=== PATIENT | female | born 1980 | race Caucasian/White ===

== ENCOUNTER 2024-12-14 15:35 | Emergency (ER) | payer OTHER ==
--- OUTSIDE RECORDS SUMMARY | 2024-12-14 15:39 | XMS REPORT | Continuity of Care Document ---
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 Name Role Phone GC_GCBZW_Kadiyala_S Attending Clinician Unavaila ble GC_CCW_Nguyen_C Attending Clinician Unavailable GC_GCBZW_Kadiyala_S Admitting Clinician Unavaila ble GC_CCW_Nguyen_C Admitting Clinician Unavailable Payers Payer Name Policy Type Policy Number Effective Date Expirati on Date [place] [id number] [place] [id number] Problems Condition Name Condition Details Condition Category Status Onset Date Resolution Date Last Treatment Date Treating Clinician Comments Source Seasonal allergic rhinitis Seasonal Allergic Rhinitis Problem Active 01-15 00:00: 00 [facility] Chronic interstiti al cystitis Chronic Interstiti al Cystitis Problem Active 01-15 00:00: 00 [facility] Prediabete s Prediabete s Problem Active 01-15 00:00: 00 [facility] Acute urinary tract infection Acute Urinary Tract Infection Problem Active 12-05 00:00: 00 [facility] Genital herpes simplex Genital Herpes Simplex Problem Active 12-04 00:00: 00 [facility] Genitocrur al intertrigo Genitocrur al Intertrigo Problem Active 12-04 00:00: 00 [facility] Increased frequency of urination Increased Frequency of Urination Problem Active 12-04 00:00: 00 [facility] Hypothyroi dism Hypothyroi dism Problem Active 07-16 00:00: 00 [facility] Hyperlipid emia Hyperlipid emia Problem Active 07-16 00:00: 00 [facility] Hypertensi ve disorder Hypertensi ve Disorder Problem Active 07-16 00:00: 00 [facility] Deep pain on intercours e Deep Pain on Intercours e Problem Active 04-19 00:00: 00 [facility] Screening mammograph y Screening Mammograph y Problem Active 07-18 00:00: 00 [facility] Gynecologi kamar examinatio n abnormal Gynecologi kamar Examinatio n Abnormal Problem Active 07-18 00:00: 00 [facility] Polyp of corpus uteri Polyp of Corpus Uteri Problem Active 6 00:00: 00 [facility] Low back pain Low Back Pain Problem Active 03-29 00:00: 00 [facility] Polymenorr hea Polymenorr hea Problem Active 02-24 00:00: 00 [facility] Postcoital bleeding Postcoital Bleeding Problem Active 02-24 00:00: 00 [facility] Excessive menstruati on with irregular cycle Excessive Menstruati on with Irregular Cycle Problem Active 02-24 00:00: 00 [facility] Cervical intraepith elial neoplasia grade 2 Cervical Intraepith elial Neoplasia Grade 2 Problem Active 07-15 00:00: 00 [facility] Social History Smoking Status Start Date Stop Date Source Never Smoker [facility] Medications Ordered Medication Name Filled Medication Name Start Date Stop Date Current Medication? Ordering Clinician Indication Dosage Frequency Signature (SIG) Comments Components Source amitriptyli ne 25 mg tablet TAKE 1 TABLET BY MOUTH EVERY DAY amitriptyli ne 25 mg tablet TAKE 1 TABLET BY MOUTH EVERY DAY No amitriptyl ine 25 mg tablet TAKE 1 TABLET BY MOUTH EVERY DAY [facility] atorvastati n 10 mg tablet TAKE 1 TABLET BY MOUTH EVERY DAY FOR 30 DAYS atorvastati n 10 mg tablet TAKE 1 TABLET BY MOUTH EVERY DAY FOR 30 DAYS No atorvastat in 10 mg tablet TAKE 1 TABLET BY MOUTH EVERY DAY FOR 30 DAYS [facility] estradiol 0.01% (0.1 mg/gram) vaginal cream INSERT 0.5GRAMS DAILY FOR 2 WEEKS THEN 3 TIMES A WEEK BY VAGINAL ROUTE AT BEDTIME FOR 30 DAYS. estradiol 0.01% (0.1 mg/gram) vaginal cream INSERT 0.5GRAMS DAILY FOR 2 WEEKS THEN 3 TIMES A WEEK BY VAGINAL ROUTE AT BEDTIME FOR 30 DAYS. No estradiol 0.01% (0.1 mg/gram) vaginal cream INSERT 0.5GRAMS DAILY FOR 2 WEEKS THEN 3 TIMES A WEEK BY VAGINAL ROUTE AT BEDTIME FOR 30 DAYS. [facility] fenofibrate 160 mg tablet TAKE 1 TABLET BY MOUTH EVERY DAY fenofibrate 160 mg tablet TAKE 1 TABLET BY MOUTH EVERY DAY No fenofibrat e 160 mg tablet TAKE 1 TABLET BY MOUTH EVERY DAY [facility] lisinopril 10 mg tablet TAKE 1 TABLET BY MOUTH EVERY DAY lisinopril 10 mg tablet TAKE 1 TABLET BY MOUTH EVERY DAY No lisinopril 10 mg tablet TAKE 1 TABLET BY MOUTH EVERY DAY [facility] nystatin 100,000 unit/gram topical powder APPLY TOPICALLY TO AFFECTED AREA TWICE A DAY nystatin 100,000 unit/gram topical powder APPLY TOPICALLY TO AFFECTED AREA TWICE A DAY No nystatin 100,000 unit/gram topical powder APPLY TOPICALLY TO AFFECTED AREA TWICE A DAY [facility] pantoprazol e 40 mg tablet,[place] yed release TAKE 1 TABLET BY MOUTH TWICE A DAY pantoprazol e 40 mg tablet,law[place] yed release TAKE 1 TABLET BY MOUTH TWICE A DAY No pantoprazo le 40 mg tablet,del ayed release TAKE 1 TABLET BY MOUTH TWICE A DAY [facility] Synthroid 100 mcg tablet TAKE 1 TABLET BY MOUTH EVERY DAY BEFORE A MEAL Synthroid 100 mcg tablet TAKE 1 TABLET BY MOUTH EVERY DAY BEFORE A MEAL No Synthroid 100 mcg tablet TAKE 1 TABLET BY MOUTH EVERY DAY BEFORE A MEAL [facility] triamcinolo ne acetonide 0.05 % topical ointment APPLY A THIN LAYER TO THE AFFECTED AREA(S) BY TOPICAL ROUTE 2 TIMES PER DAY triamcinolo ne acetonide 0.05 % topical ointment APPLY A THIN LAYER TO THE AFFECTED AREA(S) BY TOPICAL ROUTE 2 TIMES PER DAY No triamcinol one acetonide 0.05 % topical ointment APPLY A THIN LAYER TO THE AFFECTED AREA(S) BY TOPICAL ROUTE 2 TIMES PER DAY [facility] triamcinolo ne acetonide 0.5 % topical ointment APPLY THIN COAT TO AFFECTED AREA TWICE A DAY triamcinolo ne acetonide 0.5 % topical ointment APPLY THIN COAT TO AFFECTED AREA TWICE A DAY No triamcinol one acetonide 0.5 % topical ointment APPLY THIN COAT TO AFFECTED AREA TWICE A DAY [facility] Vistaril 25 mg capsule 1-2 capsules daily Vistaril 25 mg capsule 1-2 capsules daily No Vistaril 25 mg capsule 1-2 capsules daily [facility] Yuvafem 10 mcg vaginal tablet INSERT 1 TABLET TWICE A WEEK BY VAGINAL ROUTE AT BEDTIME FOR 90 DAYS. Yuvafem 10 mcg vaginal tablet INSERT 1 TABLET TWICE A WEEK BY VAGINAL ROUTE AT BEDTIME FOR 90 DAYS. No Yuvafem 10 mcg vaginal tablet INSERT 1 TABLET TWICE A WEEK BY VAGINAL ROUTE AT BEDTIME FOR 90 DAYS. [facility] Vital Signs Vital Name Observation Time Observation Value Comments S ource Height 2024-01-15 00:00:00 [facility] 2024-01-01 00:00:00 68 [in_i] [facility] BMI (Body Mass Index) 2024-01-01 00:00:00 30.9 kg/m2 [facility] BP Systolic 2024-01-01 00:00:00 126 mm[Hg] [facility] Body Weight 2024-01-01 00:00:00 203 [lb_av] [facility] BP Diastolic 2024-01-01 00:00:00 84 mm[Hg] [facility] Procedures Procedure Date / Time Performed Performing Clinicia n Source Cystoscopy 2024-01-01 00:00:00 [facility] edical CT, urogram 2023-12-04 00:00:00 [facility] edical Hysteroscopy Biopsy 2021-03-31 00:00:00 P [facility] [place] Cone Biopsy of Cervix 2017-10-22 00:00:00 [facility] Encounters Start Date/Time End Date/Time Encounter Type Admission Type Attending Clinicians Care Facility Care Department Encounter ID Source 2024-01-25 00:00:00 2024-01-25 00:00:00 Outpatient GC_GCBZW_Ka gloria_Yanci [facility] [id number] [facility] 2024-01-15 00:00:00 2024-01-15 00:00:00 Yusra Sheridan MD: [address] [place] [address] S, [facility] [address], [place] [address] , Ph. TAMARA_GCBZW_Ka diyala_S Formerly [facility] - GC_GCBZW_Araceli ibanez Bandar* [id number] [facility] 2024-01-09 00:00:00 2024-01-09 00:00:00 Outpatient GC_GCBZW_Ka diyala_S PRIV PRIV [id number] [facility] 2024-01-01 00:00:00 2024-01-01 00:00:00 Yusra Sheridan MD: [address], [place] [address] [id number] , Ph. GC_GCBZW_Ka diyala_S [facility] - GC_GCBZW_Araceli ibanez Bandar* [id number] [facility] 2024-01-01 00:00:00 2024-01-01 00:00:00 Yusra Sheridan MD: [address], [address], [place] [phone] , Ph. [facility] - GC_GCBZW_Araceli ibanez Bandar* [id number] [facility] 2023-12-24 00:00:00 2023-12-24 00:00:00 Outpatient GC_GCBZW_Ka diyala_S PRIV PRIV [id number] [facility] 2023-12-14 00:00:00 2023-12-14 00:00:00 Outpatient GC_GCBZW_Ka diyala_S PRIV PRIV [id number] [facility] 2023-12-05 00:00:00 2023-12-05 00:00:00 Outpatient GC_CCW_Nguy en_C PRIV PRIV [id number] [facility] 2023-12-04 00:00:00 2023-12-04 00:00:00 Outpatient GC_GCBZW_Ka diyala_S PRIV PRIV [id number] [facility] 2023-12-04 00:00:00 2023-12-04 00:00:00 Yusra Sheridan MD: [address], [place] [address] , Ph. [facility] - GC_GCBZW_Araceli Portillo* [id number] [facility] 2023-09-07 00:00:00 2023-09-07 00:00:00 Outpatient GC_GCBZW_Ka diyala_S PRIV PRIV [id number] [facility] 2023-09-07 00:00:00 2023-09-07 00:00:00 Outpatient GC_GCBZW_Ka diyala_S PRIV PRIV [id number] [facility] 2023-08-07 00:00:00 2023-08-07 00:00:00 Outpatient GC_GCBZW_Ka diyala_S PRIV PRIV [id number] [facility] 2023-08-02 00:00:00 2023-08-02 00:00:00 Outpatient GC_GCBZW_Ka diyala_S PRIV PRIV [id number] [facility] 2023-07-24 00:00:00 2023-07-24 00:00:00 Outpatient GC_GCBZW_Ka diyala_S PRIV PRIV [id number] [facility] Results Test Description Test Time Test Comments Results Result Co mments Source [facility] macro (dipstick) panel - [id number] 14:46:28* Test Item Value Reference Range Interpretation Comme nts Leukocytes (test code = Leukocytes) 3+ Nitrite (test code = Nitrite) positive Urobilinogen (test code = Urobilinogen) Normal Protein (test code = Protein) Negative pH (test code = pH) 6.0 Blood (test code = Blood) Negative Specific [place] (test code = Specific [place]) 1.015 Ketone (test code = Ketone) Negative Bilirubin (test code = Bilirubin) Negative Glucose (test code = Glucose) Negative Appearance (test code = Appearance) Slightly Cloudy Color (test code = Color) Yellow [facility]infectious disease [id number] 02:57:00[facility]
--- NOTE | 2024-12-14 16:48 | RAD REPORT ---
EXAMINATION: Tib Fib Left CLINICAL INDICATION: Leg pain FINDINGS: No fracture seen. No bony abnormality is displayed A soft tissue mass is not visualized but can be difficult to see with x-ray.
--- NOTE | 2024-12-14 17:51 | ER ---
Nurse's Notes [facility] Name: Tamar Pinto Age: 43 yrs Sex: Female : 1980 Arrival Date: 12/14/2024 Time: 15:35 Bed IW1 Private MD: Diagnosis: Pain in left lower leg Presentation: 12/14 15:51 Chief complaint: Painful lump on LLE x 2 days. Took ASA 324mg and Motrin 800 mg BOTTLE FEEDER. hb Coronavirus screen: At this time, the client does not indicate any symptoms associated with coronavirus-19. Ebola Screen: No symptoms or risks identified at this time. Initial Sepsis Screen: Does the patient meet any 2 criteria? No. Patient's initial sepsis screen is negative. Does the patient have a suspected source of infection? No. Patient's initial sepsis screen is negative. Risk Assessment: Do you want to hurt yourself or someone else? Patient reports no desire to harm self or others. Onset of symptoms was December 12, 2024. 15:51 Method Of Arrival: Ambulatory hb 15:51 Acuity: JACIEL 4 hb Triage Assessment: 15:53 General: Appears in no apparent distress. Behavior is calm, cooperative. Pain: Pain hb currently is 7 out of 10 on a pain scale. Neuro: GCS 15. Cardiovascular: Patient's skin is warm and dry. Respiratory: Respiratory effort is even, unlabored, Respiratory pattern is regular, symmetrical. Historical: - Allergies: 15:52 No Known Allergies; hb - PMHx: 15:52 Hypertension; Thyroid problem; hb - PSHx: 15:52 None; hb - Immunization history:: Adult Immunizations up to date. - Infectious Disease History:: Denies. - Social history:: Smoking status: Patient denies any tobacco usage or history of. Vital Signs: 15:51 BP 130 / 82; Pulse 70; Resp 16; Temp 97.3(O); Pulse Ox 100% on R/A; Weight 92.53 kg; hb Height 5 ft. 8 in. ; Pain 7/10; 15:51 Body Mass Index 31.02 (92.53 kg, 172.72 cm) hb 15:51 Pain Scale: Adult hb ED Course: 15:37 Patient arrived in ED. im 15:41 Tosha Portillo FNP-C is PHCP. kb 15:41 Seymour Rodríguez MD is Attending Physician. kb 15:52 Triage completed. hb 15:53 Arm band placed on. hb 16:30 Tib Fib Left XRAY In Process Unspecified. EDMS 17:40 US Extremity Venous Unilateral Ltd In Process Unspecified. EDMS 17:57 Ann Potter, RN is Primary Nurse. iw Administered Medications: No medications were administered Outcome: 17:51 Discharge ordered by MD. kb 17:57 Patient left the ED. iw Signatures: Dispatcher [employer] EDMS Tosha Portillo, CERTIFIED APPLIANCE SERVICE TECHNICIAN-C CERTIFIED APPLIANCE SERVICE TECHNICIAN-Ckb Ann Potter, RN RN iw Anyi Floyd, RN RN Sujey Bhat
--- NOTE | 2024-12-14 17:51 | EDPHYS ---
Physician Documentation [facility] Name: Tamar Pinto Age: 43 yrs Sex: Female : 1980 Arrival Date: 12/14/2024 Time: 15:35 Bed IW1 Private MD: ED Physician Seymour Rodríguez HPI: 12/14 16:14 This 43 yrs old Female presents to ER via Ambulatory with complaints of Leg Pain, Foot kb Pain. 16:14 Pt is a 43 year old female who presents for a painful lump to left leg that she noticed kb 2 days ago. Denies injury or trauma. States she has been trying compression socks and OTC medications without relief. . Historical: - Allergies: 15:52 No Known Allergies; hb - PMHx: 15:52 Hypertension; Thyroid problem; hb - PSHx: 15:52 None; hb - Immunization history:: Adult Immunizations up to date. - Infectious Disease History:: Denies. - Social history:: Smoking status: Patient denies any tobacco usage or history of. ROS: 16:12 Constitutional: As per HPI kb Exam: 16:12 Constitutional: This is a well developed, well nourished patient who is awake, alert, kb and in no acute distress. Head/Face: Normocephalic, atraumatic. ENT: Moist Mucous membranes Cardiovascular: Regular rate Respiratory: Respirations even and unlabored. No increased work of breathing. Talking in full sentences Skin: Warm, dry with normal turgor. Normal color. Neuro: Awake and alert, GCS 15, oriented to person, place, time, and situation. 16:12 Musculoskeletal/extremity: Extremities: grossly normal except: noted in the left espinal: pain, tenderness, small mass about half way down espinal, under the skin, ROM: intact in all extremities, Circulation is intact in all extremities. Sensation intact. Weight bearing: able to fully bear weight, Vital Signs: 15:51 BP 130 / 82; Pulse 70; Resp 16; Temp 97.3(O); Pulse Ox 100% on R/A; Weight 92.53 kg; hb Height 5 ft. 8 in. ; Pain 7/10; 15:51 Body Mass Index 31.02 (92.53 kg, 172.72 cm) hb 15:51 Pain Scale: Adult hb MDM: 15:41 Medical Screening Exam initiated kb 16:14 Data reviewed: vital signs, nurses notes. kb 16:15 Differential diagnosis: dvt, abscess, lipoma, lesion. kb 17:40 Counseling: I had a detailed discussion with the patient and/or guardian regarding the kb historical points, exam findings, and any diagnostic results supporting the discharge/admit diagnosis, radiology results, the need for outpatient follow up, a family practitioner, to return to the emergency department if symptoms worsen or persist or if there are any questions or concerns that arise at home. 12/14 15:53 Order name: US Extremity Venous Unilateral Ltd kb 12/14 15:53 Order name: Tib Fib Left XRAY; Complete Time: 16:53 kb Administered Medications: No medications were administered Disposition: 12/15 12:35 Co-signature as Attending Physician, Seymour Rodríguez MD I agree with the assessment and jan plan of care. Disposition Summary: 12/14/24 17:51 Discharge Ordered Notes: Location: Home kb Condition: Stable kb Diagnosis - Pain in left lower leg kb Followup: kb - With: Emergency Department - When: As needed - Reason: Worsening of condition Followup: kb - With: Private Physician - When: 2 - 3 days - Reason: Recheck today's complaints, Continuance of care, Re-evaluation by your physician Discharge Instructions: - Discharge Summary Sheet kb - Musculoskeletal Pain kb Forms: - Medication Reconciliation Form kb - Antibiotic Education kb - Prescription Opioid Use kb - Patient Portal Instructions kb - Leadership Thank You Letter kb Prescriptions: - Diclofenac Sodium 75 mg Oral tablet, delayed release (enteric coated) - take 1 tablet ORAL route 2 times per day As needed; 30 tablet; Refills: 0, kb Product Selection Permitted Signatures: Dispatcher [employer] Tosha Roberts, BOTTOM SCRUBBER-C BOTTOM SCRUBBER-Seymour Manzanares MD MD cha Baxter, Heather, RN RN
--- NOTE | 2024-12-14 18:00 | RAD REPORT ---
EXAM:Extremity Venous Uni Ltd HISTORY: Left leg pain TECHNIQUE: Sonographic evaluation left lower extremity performed.Grayscale, color and spectral analys is performed on all vessels COMPARISON: None. FINDINGS: Left common femoral, superficial femoral, greater saphenous, popliteal and posterior tibial veins are compressible and demonstrate augmentation. Doppler demonstrates good flow. IMPRESSION: No evidence of deep venous thrombosis involving the left lower extremity.
[2024-12-14 18:01] VITALS: BP 130/82; TEMP 97.3; O2SAT 100
== END 2024-12-14 17:57 | disposition home or self-care (01) ==
LOC: ER 15:35
DX: M79.662 Pain in left lower leg (principal)
CPT/HCPCS: 93971; 99281

== ENCOUNTER 2025-02-19 11:44 | Emergency (ER) | payer OTHER ==
--- OUTSIDE RECORDS SUMMARY | 2025-02-19 11:48 | XMS REPORT | Continuity of Care Document ---
Author Name Unknown Address [address] [place] [address] [address] [place] [address] [facility] [place] Address [address] [place] [address] 1 [address] [place] [address] Care Team Providers Care Child Care Aide Name Role Phone GC_GCBZW_Kadiyala_S Attending Clinician Unavaila ble GC_CCW_Nguyen_C Attending Clinician Unavailable GC_GCBZW_Kadiyala_S Admitting Clinician Unavaila ble GC_CCW_Nguyen_C Admitting Clinician Unavailable Payers Payer Name Policy Type Policy Number Effective Date Expirati on Date Source [place] [id number] ([facility]) [id number] Problems Condition Name Condition Details Condition Category [...] infection Acute Urinary Tract Infection Problem Active - 00:00: 00 [facility] Genital herpes simplex Genital Herpes Simplex Problem Active - 00:00: 00 [facility] Genitocrur al intertrigo Genitocrur al Intertrigo Problem Active - 00:00: 00 [facility] Increased frequency of urination Increased Frequency of Urination Problem Active 2- 00:00: 00 [facility] Hypothyroi dism Hypothyroi dism Problem Active 07-16 00:00: 00 [facility] Hyperlipid emia Hyperlipid emia Problem Active 07-16 00:00: 00 [facility] Hypertensi ve disorder Hypertensi ve Disorder Problem Active 07-16 00:00: 00 [facility] Deep pain on intercours e Deep Pain on Intercours e Problem Active 04-19 00:00: 00 [facility] Screening mammograph y Screening Mammograph y Problem Active 07-18 00:00: 00 [facility] Gynecologi kamar examinatio n abnormal Gynecologi kamar Examinatio n Abnormal Problem Active 07-18 00:00: 00 [facility] Polyp of corpus uteri Polyp of Corpus Uteri Problem Active 6 00:00: 00 [facility] Low back pain Low Back Pain Problem Active 03-29 00:00: 00 [facility] Polymenorr hea Polymenorr hea Problem Active 02-24 00:00: 00 [facility] Postcoital bleeding Postcoital Bleeding Problem Active 02-24 00:00: 00 [facility] Excessive menstruati on with irregular cycle Excessive Menstruati on with Irregular Cycle Problem Active 02-24 00:00: 00 [facility] Cervical intraepith elial neoplasia grade 2 Cervical Intraepith elial Neoplasia Grade 2 Problem Active 07-15 00:00: 00 [facility] Social History Smoking Status Start Date Stop Date Source Never Smoker [facility] Medications Ordered Medication Name Filled Medication Name Start Date Stop Date Current Medication? Ordering Clinician Indication Dosage Frequency Signature (SIG) Comments Components Source amitriptyli ne 25 mg tablet TAKE 1 TABLET BY MOUTH EVERY DAY amitriptyli ne 25 mg tablet TAKE 1 TABLET BY MOUTH EVERY DAY No amitriptyl ine 25 mg tablet TAKE 1 TABLET BY MOUTH EVERY DAY [facility] atorvastati n 10 mg tablet TAKE 1 TABLET BY MOUTH EVERY DAY FOR 30 DAYS atorvastati n 10 mg tablet TAKE 1 TABLET BY MOUTH EVERY DAY FOR 30 DAYS No atorvastat in 10 mg tablet TAKE 1 TABLET BY MOUTH EVERY DAY FOR [address] [facility] estradiol 0.01% (0.1 mg/gram) vaginal cream INSERT [...] VAGINAL ROUTE AT BEDTIME FOR 30 DAYS. [facility] fenofibrate 160 mg tablet TAKE 1 TABLET BY MOUTH EVERY DAY fenofibrate 160 mg tablet TAKE 1 TABLET BY MOUTH EVERY DAY No fenofibrat e 160 mg tablet TAKE 1 TABLET BY MOUTH EVERY DAY [facility] lisinopril 10 mg tablet TAKE 1 TABLET BY MOUTH EVERY DAY lisinopril 10 mg tablet TAKE 1 TABLET BY MOUTH EVERY DAY No lisinopril 10 mg tablet TAKE 1 TABLET BY MOUTH EVERY DAY [facility] nystatin 100,000 unit/gram topical powder APPLY TOPICALLY TO AFFECTED AREA TWICE A DAY nystatin 100,000 unit/gram topical powder APPLY TOPICALLY TO AFFECTED AREA TWICE A DAY No nystatin 100,000 unit/gram topical powder APPLY TOPICALLY TO AFFECTED AREA TWICE A DAY [facility] pantoprazol e 40 mg tablet,[facility] yed release TAKE 1 TABLET BY MOUTH TWICE A DAY pantoprazol e 40 mg tablet,[place] yed release TAKE 1 TABLET BY MOUTH TWICE A DAY No pantoprazo le 40 mg tablet,del ayed release TAKE 1 TABLET BY MOUTH TWICE A DAY [facility] Synthroid 100 mcg tablet TAKE 1 TABLET BY MOUTH EVERY DAY BEFORE A MEAL Synthroid 100 mcg tablet TAKE 1 TABLET BY MOUTH EVERY DAY BEFORE A MEAL No Synthroid 100 mcg tablet TAKE 1 TABLET BY MOUTH EVERY DAY BEFORE A MEAL [facility] triamcinolo ne acetonide 0.05 % topical ointment [...] BY TOPICAL ROUTE [address] [facility] triamcinolo ne acetonide 0.5 % topical ointment APPLY THIN COAT TO AFFECTED AREA TWICE A DAY triamcinolo ne acetonide 0.5 % topical ointment APPLY THIN COAT TO AFFECTED AREA TWICE A DAY No triamcinol one acetonide 0.5 % topical ointment APPLY THIN COAT TO AFFECTED AREA TWICE A DAY [facility] Vistaril 25 mg capsule 1-2 capsules daily Vistaril 25 mg capsule 1-2 capsules daily No Vistaril 25 mg capsule 1-[address] [facility] Yuvafem 10 mcg vaginal tablet INSERT 1 TABLET TWICE A WEEK BY VAGINAL ROUTE AT BEDTIME FOR 90 DAYS. Yuvafem 10 mcg vaginal tablet INSERT 1 TABLET TWICE A WEEK BY VAGINAL ROUTE AT BEDTIME FOR 90 DAYS. No Yuvafem 10 mcg vaginal tablet INSERT 1 TABLET TWICE A WEEK BY VAGINAL ROUTE AT BEDTIME FOR 90 DAYS. [facility] Vital Signs Vital Name Observation Time Observation Value Comments S ource Height 2024-01-15 00:00:00 68 [in_i] [facility] Height 2024-01-01 00:00:00 68 [in_i] [facility] BMI (Body Mass Index) 2024-01-01 00:00:00 30.9 kg/m2 [facility] BP Systolic 2024-01-01 00:00:00 126 mm[Hg] [facility] Body Weight 2024-01-01 00:00:00 203 [lb_av] [facility] BP Diastolic 2024-01-01 00:00:00 84 mm[Hg] [facility] Procedures Procedure Date / Time Performed Performing Clinicia n Source Cystoscopy 2024-01-01 00:00:00 [facility] edical CT, urogram 2023-12-04 00:00:00 [facility] edical Hysteroscopy Biopsy 2021-03-31 00:00:00 P [facility] [place] [facility]one Biopsy of Cervix 2017-10-22 00:00:00 [facility] Encounters Start Date/Time End Date/Time Encounter Type Admission Type Attending Clinicians Care Facility Care Department Encounter ID Source 2024-01-25 00:00:00 2024-01-25 00:00:00 Outpatient GC_GCBZW_Ka gloria_Yanci [facility] [id number] [facility] 2024-01-15 00:00:00 2024-01-15 00:00:00 Yusra Sheridan MD: [address] [place] [address] S, [place] [address], [place] [address] , Ph. TAMARA_GCBZW_Ka diyala_S [facility] - GC_GCBZW_Araceli ibanez Bandar* [id number] [facility] 2024-01-09 00:00:00 2024-01-09 00:00:00 Outpatient GC_GCBZW_Ka diyala_S PRIV PRIV [id number] [facility] 2024-01-01 00:00:00 2024-01-01 00:00:00 Yusra Sheridan MD: bE [address], [address] [phone] , Ph. GC_GCBZW_Ka diyala_S [facility] - GC_GCBZW_Araceli [facility]* [id number] [facility] 2024-01-01 00:00:00 2024-01-01 00:00:00 Yusra Sheridan MD: Eb Pete, [facility] [address], [place] [phone] , Ph. [facility] - GC_GCBZW_Araceli ibanez Higbee* [id number] [facility] 2023-12-24 00:00:00 2023-12-24 00:00:00 Outpatient GC_GCBZW_Ka diyala_S PRIV PRIV [id number] [facility] 2023-12-14 00:00:00 2023-12-14 00:00:00 Outpatient GC_GCBZW_Ka diyala_S PRIV PRIV [id number] [facility] 2023-12-05 00:00:00 2023-12-05 00:00:00 Outpatient GC_CCW_Nguy en_C PRIV PRIV [id number] [facility] 2023-12-04 00:00:00 2023-12-04 00:00:00 Outpatient GC_GCBZW_Ka diyala_S PRIV PRIV [id number] [facility] 2023-12-04 00:00:00 2023-12-04 00:00:00 Yusra Sheridan MD: Eb [address], [address], [place] [address] , Ph. [facility] - GC_GCBZW_Araceli Portillo* [id number] [facility] 2023-09-07 00:00:00 2023-09-07 00:00:00 Outpatient GC_GCBZW_Ka diyala_S PRIV PRIV [id number] [facility] 2023-09-07 00:00:00 2023-09-07 00:00:00 Outpatient GC_GCBZW_Ka diyala_S PRIV PRIV [id number] [facility] 2023-08-07 00:00:00 2023-08-07 00:00:00 Outpatient GC_GCBZW_Ka diyala_S PRIV PRIV [id number] [facility] 2023-08-02 00:00:00 2023-08-02 00:00:00 Outpatient GC_GCBZW_Ka diyala_S PRIV PRIV [id number] [facility] 2023-07-24 00:00:00 2023-07-24 00:00:00 Outpatient GC_GCBZW_Ka diyala_S PRIV PRIV [id number] [facility] Results Test Description Test Time Test Comments Results Result Co mments Source [facility] MedicalUrinalysis macro (dipstick) panel - [id number] 14:46:28* Test Item Value Reference Range Interpretation Comme nts Leukocytes (test code = Leukocytes) 3+ Nitrite (test code = Nitrite) positive Urobilinogen (test code = Urobilinogen) Normal Protein (test code = Protein) Negative pH (test code = pH) 6.0 Blood (test code = Blood) Negative Specific [place] (test code = Specific [place]) 1.015 Ketone (test code = Ketone) Negative Bilirubin (test code = Bilirubin) Negative Glucose (test code = Glucose) Negative Appearance (test code = Appearance) Slightly Cloudy Color (test code = Color) Yellow [facility] Medicalinfectious disease [id number] 02:57:00[facility]
--- NOTE | 2025-02-19 12:28 | RAD REPORT ---
Procedure: Chest Single View HISTORY: Syncope COMPARISON: none FINDINGS: The lungs appear clear of acute infiltrate. No significant pleural effusion noted. The heart is normal size. IMPRESSION: No acute abnormality is displayed.
[2025-02-19 12:30] LABS: Absolute Eosinophils 0.2 K/uL (0-0.5); Absolute Lymphocytes (CBC) 1.9 K/uL (0.7-4.9); Absolute Monocytes 0.9 K/uL (0.1-1.3); Absolute Neutrophil 7.9 K/uL (1.8-8.0); Basophils % 0.4 % (0-1.3); Eosinophils % 2.2 % (0-4.4); Hematocrit 33.2 % (36.0-45.0); Hemoglobin 11.2 g/dL (12.0-15.0); Lymphocytes % 17.6 % (15.3-44.8); MCH 28.3 pg (27.0-35.0); MCHC 33.9 g/dL (32.0-36.0); MCV 83.6 fL (80-100); MPV 9.2 fL (7.6-11.3); Monocytes % 7.9 % (3.3-12.3); Neutrophils % 71.9 % (41.7-73.7); Platelets 264 thou/uL (152-406); RBC Red Blood Cell Count 3.97 M/uL (3.86-4.86); Red Cell Distribution Width 14.4 % (12.1-15.2)
[2025-02-19] MEDS ORDERED: NA CHLORIDE 0.9% 1,000 ML ONE (12:30)
[2025-02-19 12:53] LABS: ALT/SGPT 18 U/L (13-56); AST/SGOT 13 U/L (15-37); Albumin 3.2 g/dL (3.4-5.0); Albumin/Globulin Ratio 0.9 (1.1-1.8); Alkaline Phosphatase 118 U/L (45-117); Anion Gap 12.7 mEq/L (5.0-15.0); BUN Blood Urea Nitrogen 11 mg/dL (7-18); Bicarbonate 22 mEq/L (21-32); Bilirubin Total 0.4 mg/dL (0.2-1.0); Globulin 3.7 g/dL (2.3-3.5); Glomerular Filtration Rate 110 ml/min (=/>90); Glucose Level 109 mg/dL (74-106); Magnesium 1.8 mg/dL (1.6-2.4); Potassium 3.7 mEq/L (3.5-5.1); Protein, Total 6.9 g/dL (6.4-8.2); Sodium Level 139 mEq/L (136-145)
[2025-02-19 12:54] LABS: Bilirubin Direct < 0.2 mg/dL (0-0.2); Bilirubin Indirect, Calculated 0.2 mg/dL (0.2-0.8); Troponin High Sensitivity < 3.0 pg/mL (<58.9)
[2025-02-19 13:00] LABS: PT Prothrombin Time 12.1 SECONDS (10-13.0); Protime INR 1.06
--- NOTE | 2025-02-19 13:25 | RAD REPORT ---
EXAM: CT brain without contrast HISTORY: syncope, headache COMPARISON: 01/03/2018 TECHNIQUE: Multiple contiguous axial images were obtained and a CT of the brain without contrast. Sag ittal and coronal reformats were performed. One or more of the following dose reduction techniques were used: Automated exposure control, adjust ment of the mA and/or kV according to patient size, and/or iterative reconstruction. FINDINGS: No evidence of hydrocephalus, intracranial hemorrhage, or extra-axial fluid collection. The brain is normal in morphology. No evidence of midline shift or areas of brain edema. The calvarium is intact. The visualized paranasal sinuses and mastoid air cells are essentially clear . IMPRESSION: No evidence of acute intracranial abnormality.
[2025-02-19 13:37] LABS: D-Dimer < 0.215 FEUug/mL (0-0.500)
--- NOTE | 2025-02-19 14:08 | ER ---
Nurse's Notes [facility] Name: Tamar Pinto Age: 44 yrs Sex: Female : 1980 Arrival Date: 02/19/2025 Time: 11:44 Bed 13 Private MD: Diagnosis: Syncope Presentation: 02/19 11:50 Chief complaint: EMS states: Syncopal episode after having biopsy at [employer] office. Coronavirus screen: Client denies travel out of the [place] in the last 14 days. Ebola Screen: Patient denies exposure to infectious person. Patient denies travel to an Ebola-affected area in the 21 days before illness onset. Initial Sepsis Screen: Does the patient meet any 2 criteria? No. Patient's initial sepsis screen is negative. Does the patient have a suspected source of infection? No. Patient's initial sepsis screen is negative. Risk Assessment: Do you want to hurt yourself or someone else? Patient reports no desire to harm self or others. Onset of symptoms was February 19, 2025. Care prior to arrival: IV initiated. 20 GA, in the left antecubital area, Glucose check: 111. 11:50 Method Of Arrival: Ambulatory ss 11:50 Acuity: JACIEL 3 ss Historical: - Allergies: 14:23 No Known Allergies; me1 - PMHx: 14:23 Hypertension; Thyroid problem; me1 - PSHx: 14:23 None; me1 - Immunization history:: Adult Immunizations up to date. - Infectious Disease History:: Denies. - Family history:: not pertinent. - Hospitalizations: : No recent hospitalization is reported. - Social history:: Smoking status: unknown. Screenin:23 [facility] ED Fall Risk Assessment (Adult) History of falling in the last 3 months, me1 including since admission No falls in past 3 months (0 pts) Confusion or Disorientation No (0 pts) Intoxicated or Sedated No (0 pts) Impaired Gait No (0 pts) Mobility Assist Device Used No (0 pt) Altered Elimination No (0 pt) Score/Fall Risk Level 0 - 2 = Low Risk Maintained a safe environment, Provided non-skid footwear, Hourly rounding (assess needs \T\ fall precautionary measures) done. Abuse screen: Denies threats or abuse. Nutritional screening: No deficits noted. Tuberculosis screening: No symptoms or risk factors identified. Assessment: 14:21 General: Appears comfortable, well groomed, well developed, well nourished, Behavior is me1 calm, cooperative, appropriate for age, Reports Syncopal episode after having biopsy at [employer] office. Pain: Denies pain. Neuro: Level of Consciousness is awake, alert, obeys commands, Oriented to person, place, time, situation, Appropriate for age. Neuro: Reports a syncopal episode. Cardiovascular: Patient's skin is warm and dry. Cardiovascular: Rhythm is regular. Respiratory: Airway is patent Respiratory effort is even, unlabored, Respiratory pattern is regular, symmetrical. GI: No signs and/or symptoms were reported involving the gastrointestinal system. : No signs and/or symptoms were reported regarding the genitourinary system. EENT: No signs and/or symptoms were reported regarding the EENT system. Derm: Skin is intact, is healthy with good turgor, Skin is normal. Musculoskeletal: No signs and/or symptoms reported regarding the musculoskeletal system. Vital Signs: 11:50 BP 113 / 75; Pulse 59; Resp 14; Pulse Ox 99% ; Pain 0/10; ss 12:30 BP 129 / 71; Pulse 63; Resp 12; Pulse Ox 100% ; me1 13:00 BP 109 / 68; Pulse 59; Resp 15; Pulse Ox 100% ; me1 14:00 BP 116 / 71; Pulse 62; Resp 16; Pulse Ox 100% ; me1 11:50 Pain Scale: Adult ss ED Course: 11:48 Patient arrived in ED. rn 11:48 Lazaro Ward MD is Attending Physician. rn 11:51 Triage completed. ss 12:03 Graciela Blanco, ELIZABETH is Primary Nurse. me1 12:25 Chest Single View XRAY In Process Unspecified. EDMS 12:33 Maintain EMS IV. Dressing intact. Good blood return noted. Site clean \T\ dry. Gauge \T\ me 1 site: 20g LAC. Flushed with 10 mL NS. 12:34 Basic Metabolic Panel Sent. me1 12:34 Hepatic Function Sent. me1 12:34 Magnesium Sent. me1 12:34 Protime (+inr) Sent. me1 12:34 Ptt, Activated Sent. me1 12:34 Troponin High Sensitivity Sent. me1 12:34 D-Dimer Sent. me1 12:34 Initial lab(s) drawn, by me, sent to lab. EKG done, by ED staff, reviewed by Lazaro Ward MD. 12:52 CT Head Brain wo Cont In Process Unspecified. EDMS 14:23 No provider procedures requiring assistance completed. [facility] 14:23 Patient has correct armband on for positive identification. Bed in low position. Call wi1 light in reach. Side rails up X2. Provided Education on: POC. Verbalized understanding. Client placed on continuous cardiac and pulse oximetry monitoring. NIBP monitoring applied. threat monitoring analyst on. Pulse ox on. NIBP on. 14:33 IV discontinued, intact, bleeding controlled, No redness/swelling at site. Pressure ss dressing applied. Administered Medications: 12:40 Drug: NS 0.9% IV 1000 ml IV at 1000 ml once; to be given as a bolus over 60 minutes [facility] [place] Route: IV; Rate: 1000 ml; Site: left antecubital; 14:33 Follow up: IV Status: Completed infusion; IV Intake: 1000ml ss Medication: 14:23 VIS not applicable for this client. [facility] [place] Intake: 14:33 IV: 1000ml; Total: 1000ml. Outcome: 14:07 Discharge ordered by . rn 14:33 Discharged to home ambulatory, 14:33 Condition: good 14:33 Discharge instructions given to patient, Instructed on discharge instructions, follow up and referral plans. Demonstrated understanding of instructions, follow-up care, medications, Prescriptions given X 14:33 Patient left the ED. Signatures: Dispatcher [employer] EDMD Lazaro Ward MD MD rn Blanchard, Shelby, RN RN Graciela Blanco RN RN [facility] [place] Corrections: (The following items were deleted from the chart) 14: 11:50 Chief complaint: EMS states: Syncopal episode after having biopsy at [facility] ss
--- NOTE | 2025-02-19 14:08 | EDPHYS ---
Physician Documentation [facility] Name: Tamar Pinto Age: 44 yrs Sex: Female : 1980 Arrival Date: 02/19/2025 Time: 11:44 Bed 13 Private MD: ED Physician Lazaro Ward HPI: 02/19 13:34 This 44 yrs old Female presents to ER via Ambulatory with complaints of Syncope. rn 13:34 The patient has experienced syncope. Onset: The symptoms/episode began/occurred just rn prior to arrival. Associated injury: The patient did not suffer any apparent associated injury. Current symptoms: Currently, the patient is not experiencing any symptoms. The patient has not experienced similar symptoms in the past. Patient reports was at [employer] office getting a biopsy of melanoma as well as a graft. Only medication administered was lidocaine. After procedure patient reported feeling lightheaded and dizzy and felt it coming. [place] like she had to sit down when she was pain and checking out, had syncopal episode. No injuries. Patient reports feels better but still little nervous and lightheaded. No chest pain or shortness of breath.. Historical: - Allergies: 14:23 No Known Allergies; me1 - PMHx: 14:23 Hypertension; Thyroid problem; me1 - PSHx: 14:23 None; me1 - Immunization history:: Adult Immunizations up to date. - Infectious Disease History:: Denies. - Family history:: not pertinent. - Hospitalizations: : No recent hospitalization is reported. - Social history:: Smoking status: unknown. ROS: 13:34 Constitutional: Negative for fever, chills, and weight loss, Neck: Negative for injury, rn pain, and swelling, Cardiovascular: Negative for chest pain, palpitations, and edema, Respiratory: Negative for shortness of breath, cough, wheezing, and pleuritic chest pain, Abdomen/GI: Negative for abdominal pain, nausea, vomiting, diarrhea, and constipation, MS/Extremity: Negative for injury and deformity, Neuro: Negative for headache, weakness, numbness, tingling, and seizure, Exam: 13:34 Constitutional: This is a well developed, well nourished patient who is awake, alert, rn and in no acute distress. Head/Face: Normocephalic, atraumatic. Cardiovascular: Regular rate and rhythm . No pulse deficits. Respiratory: No increased work of breathing, no retractions or nasal flaring. Abdomen/GI: Soft, non-tender MS/ Extremity: Pulses equal, no cyanosis. Neurovascular intact. Full, normal range of motion. Equal circumference. Right upper extremity biopsy site clean dry and intact. No active bleeding or sign of infection Neuro: Awake and alert, GCS 15, oriented to person, place, time, and situation. Cranial nerves II-XII grossly intact. Motor strength 5/5 in all extremities. Sensory grossly intact. Cerebellar exam normal. 16:04 ECG was reviewed by the Attending Physician. rn Vital Signs: 11:50 BP 113 / 75; Pulse 59; Resp 14; Pulse Ox 99% ; Pain 0/10; ss 12:30 BP 129 / 71; Pulse 63; Resp 12; Pulse Ox 100% ; me1 13:00 BP 109 / 68; Pulse 59; Resp 15; Pulse Ox 100% ; me1 14:00 BP 116 / 71; Pulse 62; Resp 16; Pulse Ox 100% ; me1 11:50 Pain Scale: Adult ss MDM: 11:48 Medical Screening Exam initiated rn 14:06 Differential Diagnosis: cardiac arrhythmia, drug effect, emotional response, idiopathic rn syncope, vasovagal episode. Data reviewed: vital signs, nurses notes, lab test result(s), EKG, radiologic studies, CT scan, plain films, and as a result, I will discharge patient. Counseling: I had a detailed discussion with the patient and/or guardian regarding the historical points, exam findings, and any diagnostic results supporting the discharge/admit diagnosis, lab results, radiology results, the need for outpatient follow up, to return to the emergency department if symptoms worsen or persist or if there are any questions or concerns that arise at home. Response to treatment: the patient's symptoms have markedly improved after treatment, the patient's condition has returned to base line, the patient is now symptom free, and as a result, I will discharge patient. Special discussion: I discussed with the patient/guardian in detail that at this point there is no indication for admission to the hospital. It is understood, however, that if the symptoms persist or worsen the patient needs to return immediately for re-evaluation. 02/19 11:49 Order name: Basic Metabolic Panel; Complete Time: 13:29 rn 02/19 11:49 Order name: CBC with Diff; Complete Time: 13:29 rn 02/19 11:49 Order name: Hepatic Function; Complete Time: 13:29 rn 02/19 11:49 Order name: Magnesium; Complete Time: 13: rn 02/19 11:49 Order name: Protime (+inr); Complete Time: 13:49 rn 02/19 11:49 Order name: Ptt, Activated; Complete Time: 13:49 rn 02/19 11:49 Order name: Troponin High Sensitivity; Complete Time: 13: rn 02/19 11:49 Order name: D-Dimer; Complete Time: 13:49 rn 02/19 11:49 Order name: CT Head Brain wo Cont; Complete Time: 13: rn 02/19 11:49 Order name: Chest Single View XRAY; Complete Time: 13: rn 02/19 11:49 Order name: Cardiac monitoring; Complete Time: 12:34 rn 02/19 11:49 Order name: EKG - Nurse/Tech; Complete Time: 12:34 rn 02/19 11:49 Order name: IV Saline Lock; Complete Time: 12:34 rn 02/19 11:49 Order name: Labs collected and sent; Complete Time: 12:34 rn 02/19 11:49 Order name: NPO; Complete Time: 12:34 rn 02/19 11:49 Order name: O2 Per Protocol; Complete Time: 12:34 rn 02/19 11:49 Order name: O2 Sat Monitoring; Complete Time: 12:34 rn EC:04 Rate is 60 beats/min. Rhythm is regular. QRS [place] is Normal. DE interval is normal. QRS rn interval is normal. QT interval is normal. No Q waves. No ST changes noted. Clinical impression: NSR w/ Non-specific ST/T Changes. Interpreted by me. Reviewed by me. Administered Medications: 12:40 Drug: NS 0.9% IV 1000 ml IV at 1000 ml once; to be given as a bolus over 60 minutes me1 Route: IV; Rate: 1000 ml; Site: left antecubital; 14:33 Follow up: IV Status: Completed infusion; IV Intake: 1000ml ss Disposition Summary: 02/19/25 14:07 Discharge Ordered Notes: Location: Home rn Problem: new rn Symptoms: have improved rn Condition: Stable rn Diagnosis - Syncope rn Followup: rn - With: Private Physician - When: As needed - Reason: Recheck today's complaints, Re-evaluation by your physician Discharge Instructions: - Discharge Summary Sheet rn - Syncope rn Forms: - Medication Reconciliation Form rn - 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 EDNJ EDNJ
[2025-02-19 14:39] VITALS: O2SAT 100
[2025-02-19 14:41] VITALS: BP 116/71
--- NOTE | 2025-02-20 16:28 | EKG ---
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
== END 2025-02-19 14:33 | disposition home or self-care (01) ==
LOC: ER 11:44
DX: R55 Syncope and collapse (principal); R42 Dizziness and giddiness; I10 Essential (primary) hypertension; E07.9 Disorder of thyroid, unspecified
CPT/HCPCS: 96361; 93005; 85025; 80048; 36415; 83735; 85610; 85379; 80076; 85730; 84484; 70450; 71045; 96360; 99285; J7030

== ENCOUNTER 2025-06-09 21:01 | Emergency (ER) | payer OTHER ==
--- OUTSIDE RECORDS SUMMARY | 2025-06-09 21:05 | XMS REPORT | Continuity of Care Document ---
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 Role Phone GC_GCBZW_Kadiyala_S Attending Clinician Unavaila ble GC_CCW_Nguyen_C Attending Clinician Unavailable GC_GCBZW_Kadiyala_S Admitting Clinician Unavaila ble GC_CCW_Nguyen_C Admitting Clinician Unavailable Payers Payer Name Policy Type Policy Number Effective Date Expirati on Date Source [place] [id number] [place] [id number] Problems Condition Name Condition Details Condition Category [...] Hyperlipid emia Problem Active 07-16 00:00: 00 [facility] Hypertensi ve disorder Hypertensi ve Disorder Problem Active 07-16 00:00: 00 [facility] Deep pain on intercours e Deep Pain on Intercours e Problem Active 04-19 00:00: 00 [facility] Screening mammograph y Screening Mammograph y Problem Active 07-18 00:00: 00 [facility] Gynecologi kamar examinatio n abnormal Gynecologi kamar Examinatio n Abnormal Problem Active 07-18 00:00: 00 [facility] Polyp of corpus uteri Polyp of Corpus Uteri Problem Active 6 00:00: 00 [facility] Low back pain Low Back Pain Problem Active 03-29 00:00: 00 [facility] Polymenorr hea Polymenorr hea Problem Active 02-24 00:00: 00 [facility] Postcoital bleeding Postcoital Bleeding Problem Active 02-24 00:00: 00 [facility] Excessive menstruati on with irregular cycle Excessive Menstruati on with Irregular Cycle Problem Active 02-24 00:00: 00 [facility] 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 Ordering Clinician Indication Dosage Frequency Signature (SIG) Comments Components Source betamethaso ne dipropionat e 0.05 % topical cream APPLY THIN LAYER (0.25-0.5G) TO RASH ON ARMS AND LEGS TWICE A DAY FOR 2 WEEKS/MONTH betamethaso ne dipropionat e 0.05 % topical cream APPLY THIN LAYER (0.25-0.5G) TO RASH ON ARMS AND LEGS TWICE A DAY FOR 2 WEEKS/MONTH No betamethas one dipropiona te 0.05 % topical cream APPLY THIN LAYER (0.25-0.5G ) TO RASH ON ARMS AND LEGS TWICE A DAY FOR 2 WEEKS/CHAR H [facility] cetirizine 10 mg tablet TAKE 1 TABLET BY MOUTH EVERY DAY cetirizine 10 mg tablet TAKE 1 TABLET BY MOUTH EVERY DAY No cetirizine 10 mg tablet TAKE 1 TABLET BY MOUTH EVERY DAY [facility] Ozempic 0.25 mg or 0.5 mg (2 mg/3 mL) subcutaneou s pen injector INJECT 0.25 MG EVERY WEEK BY SUBCUTANEOU S ROUTE FOR 28 DAYS. Ozempic 0.25 mg or 0.5 mg (2 mg/3 mL) subcutaneou s pen injector INJECT 0.25 MG EVERY WEEK BY SUBCUTANEOU S ROUTE FOR 28 DAYS. No Ozempic 0.25 mg or 0.5 mg (2 mg/3 mL) subcutaneo us pen injector INJECT 0.25 MG EVERY WEEK BY SUBCUTANEO US ROUTE FOR 28 DAYS. [facility] amitriptyli ne 25 mg tablet TAKE 1 TABLET BY MOUTH EVERY DAY amitriptyli ne 25 mg tablet TAKE 1 TABLET BY MOUTH EVERY DAY No amitriptyl ine 25 mg tablet TAKE 1 TABLET BY MOUTH EVERY DAY [facility] atorvastati n 10 mg tablet TAKE 1 TABLET BY MOUTH EVERY DAY atorvastati n 10 mg tablet TAKE 1 TABLET BY MOUTH EVERY DAY No atorvastat in 10 mg tablet TAKE 1 TABLET BY MOUTH EVERY DAY [facility] lisinopril 10 mg tablet TAKE 1 TABLET BY MOUTH EVERY DAY lisinopril 10 mg tablet TAKE 1 TABLET BY MOUTH EVERY DAY No lisinopril 10 mg tablet TAKE 1 TABLET BY MOUTH EVERY DAY [facility] nystatin 100,000 unit/gram topical powder APPLY TOPICALLY TO AFFECTED AREA TWICE A DAY nystatin 100,000 unit/gram topical powder APPLY TOPICALLY TO AFFECTED AREA TWICE A DAY No nystatin 100,000 unit/gram topical powder APPLY TOPICALLY TO AFFECTED AREA TWICE A DAY [facility] Synthroid 100 mcg tablet TAKE 1 TABLET BY MOUTH EVERY DAY BEFORE A MEAL Synthroid 100 mcg tablet TAKE 1 TABLET BY MOUTH EVERY DAY BEFORE A MEAL No Synthroid 100 mcg tablet TAKE 1 TABLET BY MOUTH EVERY DAY BEFORE A MEAL [facility] Vital Signs Vital Name Observation Time Observation Value Comments S ource Body Weight 2025-04-08 00:00:00 206 [lb_av] [facility] BMI (Body Mass Index) 2025-04-08 00:00:00 31.3 kg/m2 [facility] BP Diastolic 2025-04-08 00:00:00 82 mm[Hg] [facility] Height 2025-04-08 00:00:00 68 [in_i] [facility] BP Systolic 2025-04-08 00:00:00 118 mm[Hg] [facility] Height 2024-01-15 00:00:00 68 [in_i] [facility] Height 2024-01-01 00:00:00 68 [in_i] [facility] BMI (Body Mass Index) 2024-01-01 00:00:00 30.9 kg/m[facility] Systolic 2024-01-01 00:00:00 126 mm[Hg] [facility] Body Weight 2024-01-01 00:00:00 203 [lb_av] [facility] BP Diastolic 2024-01-01 00:00:00 84 mm[Hg] [facility] Procedures Procedure Date / Time Performed Performing Clinicia n Source Excision of Melanoma 2025-01-20 00:00:00 [facility] Transurethral Cystoscopy 2024-01-01 00:00:00 [facility] Cystoscopy 2024-01-01 00:00:[address] [facility] M edical CT, urogram 2023-12-04 00:00:00 [facility] M edical Hysteroscopy Biopsy 2021-03-31 00:00:00 [facility] Cold Knife Cone Biopsy of Cervix 2017-10-22 00:00:00 [facility] Encounters Start Date/Time End Date/Time Encounter Type Admission Type Attending Clinicians Care Facility Care Department Encounter ID Source 2025-04-08 00:00:00 2025-04-08 00:00:00 ASHOK Garcia: [address], [place] [address] , Ph. [facility] - GC_GCBZW_Araceli [facility] [id number] [facility] 2024-01-25 00:00:00 2024-01-25 00:00:00 Outpatient GC_GCBZW_Rima castro_Yanci [facility] [id number] [facility] 2024-01-15 00:00:00 2024-01-15 00:00:00 Yusra Sheridan MD: [address], [place] [address] , Ph. GC_GCBZW_Ka diyala_S [facility] - GC_GCBZW_Araceli Portillo* [id number] [facility] 2024-01-01 00:00:00 2024-01-01 00:00:00 Yusra Sheridan MD: [address], [place] [address] , Ph. [facility] GC_GCBZW_Araceli Portillo* [id number] [facility] 2023-12-04 00:00:00 2023-12-04 00:00:00 Yusra Sheridan MD: [address], [place] [address] , Ph. [facility] - GC_GCBZW_Araceli Portillo* [id number] [facility] Results Test Description Test Time Test Comments Results Result Co mments Source [facility] MedicalUrinalysis macro (dipstick) panel - [id number] 14:46:28* Test Item Value Reference Range Interpretation Comme nts Leukocytes (test code = Leukocytes) 3+ Nitrite (test code = Nitrite) positive Urobilinogen (test code = Urobilinogen) Normal Protein (test code = Protein) Negative pH (test code = pH) 6.0 Blood (test code = Blood) Negative Specific [place] (test code = Specific [place]) 1.015 Ketone (test code = Ketone) Negative Bilirubin (test code = Bilirubin) Negative Glucose (test code = Glucose) Negative Appearance (test code = Appearance) Slightly Cloudy Color (test code = Color) Yellow [facility] Medicalinfectious disease [id number] 02:57:00[facility]
[2025-06-09] MEDS ORDERED: BENZONATATE 100 MG CAP PO ONE (22:05)
[2025-06-09] MEDS ORDERED: IBUPROFEN 400 MG TAB ONE (22:05)
[2025-06-09] MEDS ORDERED: GUAIFENESIN/DM 5 ML UCUP ONE (22:05)
[2025-06-09] MEDS ORDERED: NA CHLORIDE 0.9% 1,000 ML ONE (22:06)
--- NOTE | 2025-06-09 22:09 | RAD REPORT ---
EXAMINATION: ONE VIEW CHEST XR CLINICAL INDICATION: CHEST PAIN TECHNIQUE: Frontal chest projection is submitted. Examination is limited by patient positioning and t echnique. COMPARISON: 04/26/2025 FINDINGS: The lungs are well inflated and clear. The heart is upper limit of normal in size. No displaced fract ures identified. IMPRESSION: No acute intrathoracic abnormalities.
[2025-06-09 22:10] LABS: Absolute Lymphocytes (CBC) 3.1 K/uL (0.7-4.9); Hematocrit 36.3 % (36.0-45.0); Hemoglobin 12.4 g/dL (12.0-15.0); MCH 28.7 pg (27.0-35.0); MCHC 34.1 g/dL (32.0-36.0); MCV 84.2 fL (80-100); MPV 8.6 fL (7.6-11.3); Nucleated RBC Absolute Count 0.0 (0-0); Nucleated Red Blood Cells % 0.1 % (0-0); RBC Red Blood Cell Count 4.32 M/uL (3.86-4.86); White Blood Count 12.90 thou/uL (4.3-10.9)
[2025-06-09 22:17] LABS: PT Prothrombin Time 11.7 SECONDS (10-13.0); Protime INR 1.04
[2025-06-09 22:27] LABS: ALT/SGPT 28 U/L (13-56); AST/SGOT 20 U/L (15-37); Albumin 3.7 g/dL (3.4-5.0); Albumin/Globulin Ratio 0.9 (1.1-1.8); Alkaline Phosphatase 109 U/L (45-117); Anion Gap 7.5 mEq/L (5.0-15.0); BUN Blood Urea Nitrogen 10 mg/dL (7-18); Globulin 3.9 g/dL (2.3-3.5); Glucose Level 120 mg/dL (74-106); Magnesium 1.9 mg/dL (1.6-2.4); NT PRO-BNP 9 pg/mL (<125); Potassium 3.5 mEq/L (3.5-5.1)
[2025-06-09 22:36] LABS: Bilirubin Indirect, Calculated 0.1 mg/dL (0.2-0.8); Troponin High Sensitivity < 3.0 pg/mL (<58.9)
--- NOTE | 2025-06-10 00:26 | ER ---
Nurse's Notes [facility] Name: Tamar Pitno Age: 44 yrs Sex: Female : 1980 Arrival Date: 06/09/2025 Time: 21:01 Bed 16 Private MD: Diagnosis: Acute bronchitis, unspecified Presentation: 06/09 21:07 Chief complaint: Patient states: SHE WAS DIAGNOSED WITH BRONCHITIS THE BEGINNING OF dd2 APRIL AND HAS HAD SHORTNESS OF BREATH AND COUGH SINCE. REPORTS WENT FOR HER FOLLOW-UP AND CONTINUES TO FEEL WORSE. Coronavirus screen: At this time, the client does not indicate any symptoms associated with coronavirus-19. Ebola Screen: No symptoms or risks identified at this time. Initial Sepsis Screen: Does the patient meet any 2 criteria? No. Patient's initial sepsis screen is negative. Does the patient have a suspected source of infection? No. Patient's initial sepsis screen is negative. Risk Assessment: Do you want to hurt yourself or someone else? Patient reports no desire to harm self or others. Onset of symptoms is unknown. 21:07 Method Of Arrival: Ambulatory dd2 21:07 Acuity: JACIEL 3 dd2 Triage Assessment: 21:10 General: Appears in no apparent distress. uncomfortable, Behavior is calm, cooperative, dd2 appropriate for age. Pain: Denies pain. Respiratory: Reports shortness of breath at rest on exertion cough that is Airway is patent Respiratory effort is even, unlabored, Respiratory pattern is regular, symmetrical, Onset: The symptoms/episode began/occurred at an unknown time. the patient has mild shortness of breath. Historical: - Allergies: 21:10 No Known Allergies; dd2 - PMHx: 21:10 High Cholesterol; Hypertension; melanoma; Thyroid problem; Diabetes mellitus; dd2 - PSHx: 21:10 melanoma removed from right shoulder; dd2 - Immunization history:: Adult Immunizations up to date. - Infectious Disease History:: Denies. - Social history:: Smoking status: Patient denies any tobacco usage or history of. - Family history:: not pertinent. Screenin:28 [facility] ED Fall Risk Assessment (Adult) History of falling in the last 3 months, lg3 including since admission No falls in past 3 months (0 pts) Confusion or Disorientation No (0 pts) Intoxicated or Sedated No (0 pts) Impaired Gait No (0 pts) Mobility Assist Device Used No (0 pt) Altered Elimination No (0 pt) Score/Fall Risk Level 0 - 2 = Low Risk Oriented to surroundings, Maintained a safe environment, Educated pt \T\ family on fall prevention, incl call for assistance when getting out of bed, Assessed \T\ reinforced patient's understanding of fall precautions. Abuse screen: Denies threats or abuse. Denies injuries from another. Nutritional screening: No deficits noted. Tuberculosis screening: No symptoms or risk factors identified. Assessment: 21:28 General: Appears in no apparent distress. comfortable, Behavior is calm, cooperative. lg3 Pain: Denies pain. Neuro: No deficits noted. Campos Agitation-Sedation Scale (RASS): 0 - Alert and Calm Level of Consciousness is awake, alert, obeys commands, Oriented to person, place, time, situation. Cardiovascular: No deficits noted. Denies chest pain, Heart tones S1 S2 present Capillary refill < 3 seconds Clubbing of nail beds is absent JVD is absent Patient's skin is warm and dry. Rhythm is regular. Respiratory: Reports shortness of breath at rest Airway is patent Respiratory effort is even, unlabored, Respiratory pattern is regular, symmetrical, Breath sounds are diminished in left posterior upper lobe the patient has mild shortness of breath. GI: No deficits noted. No signs and/or symptoms were reported involving the gastrointestinal system. Abdomen is round non-distended. : No signs and/or symptoms were reported regarding the genitourinary system. EENT: No deficits noted. No signs and/or symptoms were reported regarding the EENT system. Derm: No deficits noted. No signs and/or symptoms reported regarding the dermatologic system. Skin is intact, is healthy with good turgor, Skin is dry, Skin is normal, Skin temperature is warm. Musculoskeletal: No deficits noted. No signs and/or symptoms reported regarding the musculoskeletal system. Circulation, motion, and sensation intact. Range of motion: intact in all extremities. 22:13 Reassessment: Patient appears in no apparent distress at this time. No changes from kt5 previously documented assessment. Patient denies pain at this time. 23:24 Reassessment: Patient appears in no apparent distress at this time. No changes from kt5 previously documented assessment. Patient states feeling better. Patient states symptoms have improved. 06/10 01:06 Reassessment: Patient appears in no apparent distress at this time. No changes from kt5 previously documented assessment. Patient and/or family updated on plan of care and expected duration. Pain level reassessed. Patient is alert, oriented x 3, equal unlabored respirations, skin warm/dry/pink. Patient states feeling better. Patient states symptoms have improved. Vital Signs: 06/09 21:07 BP 143 / 102; Pulse 89; Resp 18; Temp 99; Pulse Ox 100% ; Weight 89.81 kg; Pain 0/10; dd2 21:49 BP 135 / 83; Pulse 86; Resp 16 S; Pulse Ox 100% on R/A; lg3 23:25 BP 136 / 71; Pulse 64; Resp 16 S; Pulse Ox 99% on R/A; kt5 06/10 01:08 BP 128 / 69; Pulse 84; Resp 16 S; Temp 98.4(O); Pulse Ox 99% on R/A; kt5 06/09 21:07 Pain Scale: Adult dd2 Calvin Coma Score: 06/09 22:49 Eye Response: spontaneous(4). Motor Response: obeys commands(6). Verbal Response: sp4 oriented(5). Total: 15. ED Course: 21:05 Patient arrived in ED. gm2 21:10 Triage completed. dd2 21:10 Arm band placed on right wrist. dd2 21:17 Jose M Valverde MD is Attending Physician. sp4 21:27 Deb Longoria RN is Primary Nurse. lg3 21:28 Patient has correct armband on for positive identification. Placed in gown. Bed in low lg3 position. Call light in reach. Side rails up X 1. Client placed on continuous cardiac and pulse oximetry monitoring. NIBP monitoring applied. surveillance monitor on. Door closed. Noise minimized. Warm blanket given. Pillow given. Family accompanied patient. 21:37 Initial lab(s) drawn, by ED staff, sent to lab. EKG done, by ED staff, reviewed by [email or web address] Jose M Valverde MD. Inserted saline lock: 20 gauge in left antecubital area, using aseptic technique. Blood collected. Flushed with 10 mL NS. 21:38 Basic Metabolic Panel Sent. lg3 21:38 CBC with Diff Sent. lg3 21:38 LFT's Sent. lg3 21:38 Magnesium Sent. lg3 21:38 NT PRO-BNP Sent. lg3 21:38 PT-INR Sent. lg3 21:38 Troponin HS Sent. lg3 21:41 EKG done, by hearing aide technician. ts3 21:59 XRAY Chest (1 view) In Process Unspecified. EDMS 22:59 CT Chest W/ Con In Process Unspecified. EDMS 06/10 01:06 IV discontinued, intact, bleeding controlled, No redness/swelling at site. Pressure kt5 dressing applied. 01:08 No provider procedures requiring assistance completed. kt5 01:12 Provided Education on: discharge instructions. kt5 Administered Medications: 06/09 22:13 Drug: NS 0.9% IV 1000 ml IV at 1000 ml once; to be given as a bolus over 60 minutes kt5 Route: IV; Rate: 1000 ml; Site: right antecubital; 23:43 Follow up: Response: No adverse reaction; IV Status: Completed infusion; IV Intake: kt5 1000ml 22:13 Drug: Tessalon Perle PO 200 mg PO once Route: PO; kt5 23:43 Follow up: Response: No adverse reaction kt5 22:13 Drug: Dextromethorphan-Guaifenesin PO Liquid 10 mg-100 mg/5 mL 10 ml PO once Route: PO; kt5 23:42 Follow up: Response: No adverse reaction kt5 22:13 Drug: Ibuprofen PO 800 mg PO once Route: PO; kt5 23:44 Follow up: Response: No adverse reaction; Pain is decreased kt5 Medication: 21:28 VIS not applicable for this client. lg3 Intake: 23:43 IV: 1000ml; Total: 1000ml. kt5 Outcome: 06/10 00:25 Discharge ordered by . sp4 01:08 Discharged to home ambulatory, with family, kt5 01:08 Condition: stable 01:08 Discharge instructions given to patient, Instructed on discharge instructions, follow up and referral plans. medication usage, Demonstrated understanding of instructions, follow-up care, medications, Prescriptions given X 2, 01:13 Patient left the ED. kt5 Signatures: Dispatcher [employer] EDMS Deb Longoria RN RN lg3 Jose M Valverde MD MD sp4 Marcie Castañeda gm2 KACI ECHEVARRIA RN RN dd2 Sarai Johnson ts3 Kassy Lopez RN RN kt5 Corrections: (The following items were deleted from the chart) 01:09 01:06 Reassessment: Patient appears in no apparent distress at this time. No changes kt5 from previously documented assessment. kt5
--- NOTE | 2025-06-10 00:26 | EDPHYS ---
Physician Documentation [facility] Name: Tamar Pinto Age: 44 yrs Sex: Female : 1980 Arrival Date: 06/09/2025 Time: 21:01 Bed 16 Private MD: ED Physician Jose M Valverde HPI: 06/09 21:17 This 44 yrs old Female presents to ER via Ambulatory with complaints of sp4 Shortness Of Breath. 06/10 18:36 Patient is a very pleasant 44-year-old female who presents with complaint of shortness sp4 of breath for the past several days. Patient states she was diagnosed with bronchitis 1 month ago and also took Augmentin without significant relief. Patient still has shortness of breath cough and green sputum.. Historical: - Allergies: 06/09 21:10 No Known Allergies; dd2 - PMHx: 21:10 High Cholesterol; Hypertension; melanoma; Thyroid problem; Diabetes mellitus; dd2 - PSHx: 21:10 melanoma removed from right shoulder; dd2 - Immunization history:: Adult Immunizations up to date. - Infectious Disease History:: Denies. - Social history:: Smoking status: Patient denies any tobacco usage or history of. - Family history:: not pertinent. ROS: 06/10 18:36 Constitutional: Negative for fever, chills, and weight loss, positive shortness of sp4 breath, positive cough, positive green sputum All other systems are negative, Exam: 06/09 22:49 Constitutional: This is a well developed, well nourished patient who is awake, alert, sp4 and in no acute distress. Head/Face: Normocephalic, atraumatic. Eyes: Pupils equal round and reactive to light, extra-ocular motions intact. Lids and lashes normal. Conjunctiva and sclera are not injected. Cornea within normal limits. Periorbital areas with no swelling, redness, or edema. ENT: Nares patent. No nasal discharge, no septal abnormalities noted. Tympanic membranes are normal and external auditory canals are clear. Oropharynx with no redness, swelling, or masses, exudates, or evidence of obstruction, uvula midline. Mucous membranes moist. Neck: Trachea midline, no thyromegaly or masses palpated, and no cervical lymphadenopathy. Supple, full range of motion without nuchal rigidity, or vertebral point tenderness. Chest/axilla: Normal chest wall appearance and motion. Nontender with no deformity. No lesions are appreciated. Cardiovascular: Regular rate and rhythm with a normal S1 and S2. No gallops, murmurs, or rubs. No pulse deficits. Respiratory: Lungs have equal breath sounds bilaterally, clear to auscultation and percussion. No rales, rhonchi or wheezes noted. No increased work of breathing, no retractions or nasal flaring. Abdomen/GI: Soft, with normal bowel sounds. No distension or tympany. No guarding or rebound. No evidence of tenderness throughout. Back: No spinal tenderness. No costovertebral tenderness. Skin: Warm, dry with normal turgor. Normal color with no rashes, no lesions, and no evidence of cellulitis. MS/ Extremity: Pulses equal, no cyanosis. Neurovascular intact. Full, normal range of motion. Neuro: Awake and alert, GCS 15, oriented to person, place, time, and situation. Cranial nerves II-XII grossly intact. Motor strength 5/5 in all extremities. Sensory grossly intact. Psych: Awake, alert, with orientation to person, place and time. Behavior, mood, and affect are within normal limits 22:50 ECG was reviewed by the Attending Physician. EKG at 2136 normal sinus rhythm rate 85 sp4 normal EKG Vital Signs: 21:07 BP 143 / 102; Pulse 89; Resp 18; Temp 99; Pulse Ox 100% ; Weight 89.81 kg; Pain 0/10; dd2 21:49 BP 135 / 83; Pulse 86; Resp 16 S; Pulse Ox 100% on R/A; lg3 23:25 BP 136 / 71; Pulse 64; Resp 16 S; Pulse Ox 99% on R/A; kt5 06/10 01:08 BP 128 / 69; Pulse 84; Resp 16 S; Temp 98.4(O); Pulse Ox 99% on R/A; kt5 06/09 21:07 Pain Scale: Adult dd2 [place] Coma Score: 06/09 22:49 Eye Response: spontaneous(4). Motor Response: obeys commands(6). Verbal Response: sp4 oriented(5). Total: 15. MDM: 21:17 Medical Screening Exam initiated sp4 06/10 00:23 ED course: INDICATION: COUGH COMPARISON: No existing relevant imaging studies are sp4 available TECHNIQUE: Enhanced CT of the chest was performed per protocol. Multiplanar reconstructions were provided. Dose reduction techniques were utilized for this exam including automated exposure control, adjustments to mA and/or kV according to patient's size, and the use of iterative reconstruction techniques. FINDINGS: HEART: Normal in size. No coronary arterial calcifications. No pericardial effusion or thickening. AORTA: Thoracic aorta normal in course and caliber. ADENOPATHY: No pathologic intrathoracic or axillary adenopathy. PULMONARYARTERIES: No evidence of pulmonary embolism through the level of the segmental pulmonary arteries. LUNGS: Lungs are symmetrically aerated without focal consolidation, suspicious pulmonary nodule, pleural effusion, or pneumothorax. UPPER ABDOMEN: Small fluid-filled hiatal hernia. BONES: No acute bony abnormality. IMPRESSION: 1. No acute intrathoracic findings. 2. Small fluid-filled hiatal hernia. Electronically signed by: Alverto Abebe DO 06/10/2025 12:06 AM. 18:36 Differential diagnosis: Anemia Anxiety Reaction asthma, Bronchitis pneumonia, sp4 Psychogenic. Data reviewed: vital signs, nurses notes, lab test result(s), EKG, radiologic studies, CT scan. Consideration of Admission/Observation Escalation of care including admission/observation considered. ED course: Workup today is unremarkable consistent with bronchitis. Patient advised to take as needed medication for cough. CT chest is clear will recommend further follow-up with primary care physician.. 06/09 21:18 Order name: Basic Metabolic Panel; Complete Time: 22:47 sp4 06/09 21:18 Order name: CBC with Diff; Complete Time: 22:47 sp4 06/09 21:18 Order name: LFT's; Complete Time: 22:47 sp4 06/09 21:18 Order name: Magnesium; Complete Time: 22:47 sp4 06/09 21:18 Order name: NT PRO-BNP; Complete Time: 22:47 sp4 06/09 21:18 Order name: PT-INR; Complete Time: 22:47 sp4 06/09 21:18 Order name: Troponin HS; Complete Time: 22:47 sp4 06/09 21:18 Order name: XRAY Chest (1 view); Complete Time: 22:47 sp4 06/09 21:57 Order name: CT Chest W/ Con sp4 06/09 21:18 Order name: EKG; Complete Time: 21:18 sp4 06/09 21:18 Order name: Cardiac monitoring; Complete Time: 21:38 sp4 06/09 21:18 Order name: EKG - Nurse/Tech; Complete Time: 21:38 sp4 06/09 21:18 Order name: IV Saline Lock; Complete Time: 21:38 sp4 06/09 21:18 Order name: Labs collected and sent; Complete Time: 21:38 sp4 06/09 21:18 Order name: O2 Per Protocol; Complete Time: 21:38 sp4 06/09 21:18 Order name: O2 Sat Monitoring; Complete Time: 21:38 sp4 EC/19 21:36 Rate is 85 beats/min. Rhythm is regular, Normal Sinus Rhythm. QRS Connell is Normal. DC sp4 interval is normal. QRS interval is normal. QT interval is normal. No Q waves. T waves are Normal. No ST changes noted. Clinical impression: Normal ECG. Interpreted by me. Reviewed by me. Administered Medications: 22:13 Drug: NS 0.9% IV 1000 ml IV at 1000 ml once; to be given as a bolus over 60 minutes kt5 Route: IV; Rate: 1000 ml; Site: right antecubital; 23:43 Follow up: Response: No adverse reaction; IV Status: Completed infusion; IV Intake: kt5 1000ml 22:13 Drug: Tessalon Perle PO 200 mg PO once Route: PO; kt5 23:43 Follow up: Response: No adverse reaction kt5 22:13 Drug: Dextromethorphan-Guaifenesin PO Liquid 10 mg-100 mg/5 mL 10 ml PO once Route: PO; kt5 23:42 Follow up: Response: No adverse reaction kt5 22:13 Drug: Ibuprofen PO 800 mg PO once Route: PO; kt5 23:44 Follow up: Response: No adverse reaction; Pain is decreased kt5 Disposition: 06/10 18:36 Chart complete. sp4 Disposition Summary: 06/10/25 00:25 Discharge Ordered Notes: Location: Home sp4 Problem: new sp4 Symptoms: have improved sp4 Condition: Stable sp4 Diagnosis - Acute bronchitis, unspecified sp4 Followup: sp4 - With: Private Physician - When: 7 - 10 days - Reason: Recheck today's complaints Discharge Instructions: - Discharge Summary Sheet sp4 - Acute Bronchitis, Adult sp4 Forms: - Patient Portal Instructions sp4 Prescriptions: - dextromethorphan-guaifenesin 20-400 mg Oral tablet - take 1 tablet ORAL route 4 times per day as needed for cough; 60 tablet; sp4 Refills: 0, Product Selection Permitted - benzonatate 200 mg Oral capsule - take 1 capsule ORAL route 3 times per day PRN cough; 60 capsule; Refills: 0, sp4 Product Selection Permitted Signatures: Dispatcher [employer] Jose M Fu MD MD sp4 KACI ECHEVARRIA RN RN dd2 Kassy Lopez RN RN kt5
--- NOTE | 2025-06-10 02:39 | RAD REPORT ---
INDICATION: COUGH COMPARISON: No existing relevant imaging studies are available TECHNIQUE: Enhanced CT of the chest was performed per protocol. Multiplanar reconstructions were provided. Dose reduction techniques were utilized for this exam including automated exposure control, adjustmen ts to mA and/or kV according to patient's size, and the use of iterative reconstruction techniques. FINDINGS: HEART: Normal in size. No coronary arterial calcifications. No pericardial effusion or thickening. AORTA: Thoracic aorta normal in course and caliber. ADENOPATHY: No pathologic intrathoracic or axillary adenopathy. PULMONARY ARTERIES: No evidence of pulmonary embolism through the level of the segmental pulmonary ar teries. LUNGS: Lungs are symmetrically aerated without focal consolidation, suspicious pulmonary nodule, pleu ral effusion, or pneumothorax. UPPER ABDOMEN: Small fluid-filled hiatal hernia. BONES: No acute bony abnormality. IMPRESSION: 1. No acute intrathoracic findings. 2. Small fluid-filled hiatal hernia. Electronically signed by: Alverto Abebe DO 06/10/2025 12:06 AM CDT RP NR Due to temporary technical issues with the PACS/tamyca reporting system, reports are being bobo d by the in-house radiologist without review as a courtesy to ensure prompt reporting the interpreting radiologist is fully responsible for the content of the report. Transcribed Date/Time: 06/10/2025 2:38 AM
[2025-06-10 05:27] VITALS: O2SAT 99
[2025-06-10 05:28] VITALS: BP 128/69; TEMP 98.4
== END 2025-06-10 01:13 | disposition home or self-care (01) ==
LOC: ER 21:01
DX: J20.9 Acute bronchitis, unspecified (principal)
CPT/HCPCS: 93005; 85025; 80048; 36415; 83735; 85610; 80076; 84484; 83880; 71260; 71045; Q9967; J7030

== ENCOUNTER 2025-08-09 19:51 | Emergency (ER) | payer OTHER ==
--- OUTSIDE RECORDS SUMMARY | 2025-08-09 19:54 | XMS REPORT | Continuity of Care Document ---
Author Name Unknown Address [address] [place] [address] [address] [place] [address] [facility] Address [address] [place] [address] [address] [place] [address] Care Team Providers Care Bank Credit Card Collection Clerk Name Role Phone GC_GCBZW_Kadiyala_S Attending Clinician Unavaila ble GC_CCW_Nguyen_C Attending Clinician Unavailable GC_GCBZW_Kadiyala_S Admitting Clinician Unavaila ble GC_CCW_Nguyen_C Admitting Clinician Unavailable Payers Payer Name Policy Type Policy Number Effective Date Expirati on Date Source [place] [id number] ([facility] [place] [id number] Problems Condition Name Condition Details Condition Category [...] Grade 2 Problem Active 07-15 00:00: 00 [facility] Social History Smoking Status Start Date Stop Date Source Never Smoker [facility] Medications Ordered Medication Name Filled [...] TAKE 1 TABLET BY MOUTH EVERY DAY [facility] Ozempic 0.25 mg or 0.5 mg [...] SUBCUTANEO US ROUTE FOR 28 DAYS. [facility] amitriptyli ne 25 mg tablet TAKE 1 TABLET BY MOUTH EVERY DAY amitriptyli ne 25 mg tablet TAKE 1 TABLET BY MOUTH EVERY DAY No amitriptyl ine 25 mg tablet TAKE 1 TABLET BY MOUTH EVERY DAY [facility] atorvastati n 10 mg tablet TAKE 1 TABLET BY MOUTH EVERY DAY atorvastati n 10 mg tablet TAKE 1 TABLET BY MOUTH EVERY DAY No atorvastat in 10 mg tablet TAKE 1 TABLET BY MOUTH EVERY DAY [facility] lisinopril 10 mg tablet TAKE 1 TABLET BY MOUTH EVERY DAY lisinopril 10 mg tablet TAKE 1 TABLET BY MOUTH EVERY DAY No lisinopril 10 mg tablet TAKE 1 TABLET BY MOUTH EVERY DAY [facility] nystatin 100,000 unit/gram topical powder APPLY TOPICALLY TO AFFECTED AREA TWICE A DAY nystatin 100,000 unit/gram topical powder APPLY TOPICALLY TO AFFECTED AREA TWICE A DAY No nystatin 100,000 unit/gram topical powder APPLY TOPICALLY TO AFFECTED AREA TWICE A DAY [facility] Synthroid 100 mcg tablet TAKE 1 TABLET BY MOUTH EVERY DAY BEFORE A MEAL Synthroid 100 mcg tablet TAKE 1 TABLET BY MOUTH EVERY DAY BEFORE A MEAL No Synthroid 100 mcg tablet TAKE 1 TABLET BY MOUTH EVERY DAY BEFORE A MEAL [facility] Vital Signs Vital Name Observation Time Observation Value Comments S ource Body Weight 2025-04-08 00:00:00 206 [lb_av] [facility] BMI (Body Mass Index) 2025-04-08 00:00:00 31.3 kg/m2 [facility] BP Diastolic 2025-04-08 00:00:00 82 mm[Hg] [facility] Height 2025-04-08 00:00:00 68 [in_i] [facility] BP Systolic 2025-04-08 00:00:00 118 mm[Hg] [facility] Height 2024-01-15 00:00:00 68 [in_i] [facility] Height 2024-01-01 00:00:00 68 [in_i] [facility] BMI (Body Mass Index) 2024-01-01 00:00:00 30.9 kg/m2 [facility] Systolic 2024-01-01 00:00:00 126 mm[Hg] [facility] Body Weight 2024-01-01 00:00:00 203 [lb_av] [facility] BP Diastolic 2024-01-01 00:00:00 84 mm[Hg] [facility] Procedures Procedure Date / Time Performed Performing Clinicia n Source Excision of Melanoma 2025-01-20 00:00:00 [facility] Transurethral Cystoscopy 2024-01-01 00:00:00 [facility] Cystoscopy 2024-01-01 00:00:[address] [facility] M edical CT, urogram 2023-12-04 00:00:00 [facility] edical Hysteroscopy Biopsy 2021-03-31 00:00:00 [facility] Cold Knife Cone Biopsy of Cervix 2017-10-22 00:00:00 [facility] Encounters Start Date/Time End Date/Time Encounter Type Admission Type Attending Clinicians Care Facility Care Department Encounter ID Source 2025-04-08 00:00:00 2025-04-08 00:00:00 ASHOK Garcia: [address], [place] [address] , Ph. [facility] - GC_GCBZW_Araceli [facility] [id number] [facility] 2024-01-25 00:00:00 2024-01-25 00:00:00 Outpatient GC_GCBZW_Rima castro_Yanci [facility] [id number] [facility] 2024-01-15 00:00:00 2024-01-15 00:00:00 Yusra Sheridan MD: [address], [place] [address] , Ph. GC_GCBZW_Ka diyala_S [facility] - GC_GCBZW_Araceli Portillo* [id number] [facility] 2024-01-01 00:00:00 2024-01-01 00:00:00 Yusra Sheridan MD: [address], [place] [address] , Ph. [facility] GC_GCBZW_Araceli Portillo* [id number] [facility] 2023-12-04 00:00:00 2023-12-04 00:00:00 Yusra Sheridan MD: [address], [place] [address] , Ph. [facility] - GC_GCBZW_Araceli Portillo* [id number] [facility] Results Test Description Test Time Test Comments Results Result Co mments Source [facility] MedicalUrinalysis macro (dipstick) panel - [id number] 14:46:28* Test Item Value Reference Range Interpretation Comme nts Leukocytes (test code = Leukocytes) 3+ Nitrite (test code = Nitrite) positive Urobilinogen (test code = Urobilinogen) Normal Protein (test code = Protein) Negative pH (test code = pH) 6.0 Blood (test code = Blood) Negative Specific [place] (test code = Specific [place]) 1.015 Ketone (test code = Ketone) Negative Bilirubin (test code = Bilirubin) Negative Glucose (test code = Glucose) Negative Appearance (test code = Appearance) Slightly Cloudy Color (test code = Color) Yellow [facility] Medicalinfectious disease [id number] 02:57:00Abnormal [facility]
[2025-08-09] MEDS ORDERED: DIAZEPAM 5 MG TABLET ONE (20:30)
[2025-08-09 20:32] LABS: Absolute Lymphocytes (CBC) 2.4 K/uL (0.7-4.9); Hematocrit 34.7 % (36.0-45.0); Hemoglobin 11.6 g/dL (12.0-15.0); MCH 28.3 pg (27.0-35.0); MCHC 33.5 g/dL (32.0-36.0); MCV 84.6 fL (80-100); MPV 8.9 fL (7.6-11.3); Nucleated RBC Absolute Count 0.0 (0-0); Nucleated Red Blood Cells % 0.0 % (0-0); PT Prothrombin Time 12.4 SECONDS (10-13.0); Protime INR 1.1; RBC Red Blood Cell Count 4.11 M/uL (3.86-4.86); White Blood Count 10.90 thou/uL (4.3-10.9)
[2025-08-09 20:45] LABS: ALT/SGPT 28 U/L (13-56); AST/SGOT 15 U/L (15-37); Albumin 3.5 g/dL (3.4-5.0); Albumin/Globulin Ratio 0.9 (1.1-1.8); Alkaline Phosphatase 106 U/L (45-117); Anion Gap 9.7 mEq/L (5.0-15.0); BUN Blood Urea Nitrogen 10 mg/dL (7-18); Globulin 3.8 g/dL (2.3-3.5); Glucose Level 144 mg/dL (74-106); Magnesium 2.1 mg/dL (1.6-2.4); NT PRO-BNP 51 pg/mL (<125); Potassium 3.7 mEq/L (3.5-5.1); Troponin High Sensitivity 3.4 pg/mL (<58.9)
[2025-08-09 20:53] LABS: Bilirubin Indirect, Calculated 0.1 mg/dL (0.2-0.8)
--- NOTE | 2025-08-09 21:07 | RAD REPORT ---
EXAMINATION: ONE VIEW CHEST XR CLINICAL INDICATION: Female, 44 years old.,CHEST PAIN TECHNIQUE: Frontal chest projection is submitted. Examination is limited by patient positioning and t echnique. COMPARISON: 06/09/2025. FINDINGS: The lungs are well inflated and clear. No pneumothorax or sizable effusion. The heart is normal in s ize. Mediastinal contours are unremarkable. IMPRESSION: No acute intrathoracic abnormalities.
[2025-08-09 22:52] LABS: Thyroid Stimulating Hormone 1.24 uIU/mL (0.358-3.740)
--- NOTE | 2025-08-09 23:14 | EDPHYS ---
Physician Documentation [facility] Name: Tamar Pinto Age: 44 yrs Sex: Female : 1980 Arrival Date: 08/09/2025 Time: 19:51 Bed 20 Private MD: ED Physician Jose M Valverde HPI: 08/09 19:54 This 44 yrs old Other Race Female presents to ER via Unassigned with complaints of sp4 Shortness Of Breath, Chest Pain. 20:34 Patient presents reporting some anxiety chest discomfort and shortness of breath for sp4 the past several days. Reports at least 4 days of dyspnea and anxiety.. 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 - Infectious Disease History:: Denies. - Social history:: Smoking status: Patient denies any tobacco usage or history of. - Family history:: not pertinent. ROS: 20:34 Constitutional: Negative for fever, chills, and weight loss, positive dyspnea chest sp4 pain and anxiety 20:34 All other systems are negative, Exam: 20:34 Constitutional: This is a well developed, well nourished patient who is awake, alert, sp4 and in no acute distress. Head/Face: Normocephalic, atraumatic. Eyes: Pupils equal round and reactive to light, extra-ocular motions intact. Lids and lashes normal. Conjunctiva and sclera are not injected. Cornea within normal limits. Periorbital areas with no swelling, redness, or edema. ENT: Nares patent. No nasal discharge, no septal abnormalities noted. Tympanic membranes are normal and external auditory canals are clear. Oropharynx with no redness, swelling, or masses, exudates, or evidence of obstruction, uvula midline. Mucous membranes moist. Neck: Trachea midline, no thyromegaly or masses palpated, and no cervical lymphadenopathy. Supple, full range of motion without nuchal rigidity, or vertebral point tenderness. Chest/axilla: Normal chest wall appearance and motion. Nontender with no deformity. No lesions are appreciated. Cardiovascular: Regular rate and rhythm with a normal S1 and S2. No gallops, murmurs, or rubs. No pulse deficits. Respiratory: Lungs have equal breath sounds bilaterally, clear to auscultation and percussion. No rales, rhonchi or wheezes noted. No increased work of breathing, no retractions or nasal flaring. Abdomen/GI: Soft, with normal bowel sounds. No distension or tympany. No guarding or rebound. No evidence of tenderness throughout. Back: No spinal tenderness. No costovertebral tenderness. Skin: Warm, dry with normal turgor. Normal color with no rashes, no lesions, and no evidence of cellulitis. MS/ Extremity: Pulses equal, no cyanosis. Neurovascular intact. Full, normal range of motion. Neuro: Awake and alert, GCS 15, oriented to person, place, time, and situation. Cranial nerves II-XII grossly intact. Motor strength 5/5 in all extremities. Sensory grossly intact. Psych: Awake, alert, with orientation to person, place and time. Behavior, mood, and affect are within normal limits 20:34 ECG was reviewed by the Attending Physician. EKG is 2005 normal sinus rhythm rate 89, otherwise unremarkable prominent respiratory artifact Vital Signs: 19:56 BP 149 / 92; Pulse 83; Resp 18; Temp 98.4; Pulse Ox 100% ; Weight 90.72 kg; Height 5 me1 ft. 8 in. ; Pain 0/10; 20:16 BP 115 / 82; Pulse 79; Resp 17; Pulse Ox 100% on R/A; Weight 96.62 kg (R); Height 5 ft. tb4 8 in. ; Pain 0/10; 21:00 BP 142 / 83; Pulse 63; Resp 19; Pulse Ox 99% on R/A; tb4 22:00 BP 140 / 77; Pulse 70; Resp 20; Pulse Ox 99% on R/A; tb4 23:00 BP 143 / 75; Pulse 88; Resp 20; Pulse Ox 99% on R/A; tb4 20:16 Body Mass Index 32.39 (96.62 kg, 172.72 cm) tb4 19:56 Pain Scale: Adult me1 20:16 Pain Scale: Adult tb4 [place] Coma Score: 20:34 Eye Response: spontaneous(4). Motor Response: obeys commands(6). Verbal Response: sp4 oriented(5). Total: 15. MDM: 20:45 Medical Screening Exam initiated 4 08/10 19:15 Differential diagnosis: Anxiety Reaction asthma, Bronchitis CHF exacerbation, Chronic sp4 Obstructive Pulmonary Disease pulmonary edema, Pulmonary Embolism. Data reviewed: vital signs, nurses notes. 19:16 ED course: No signs of ACS patient stable for discharge home. . 4 08/09 19:54 Order name: Basic Metabolic Panel; Complete Time: 21:06 [facility] 08/09 19:54 Order name: CBC with Diff; Complete Time: 21:06 [facility] 08/09 19:54 Order name: LFT's; Complete Time: 21:06 [facility] 08/09 19:54 Order name: Magnesium; Complete Time: 21:06 [facility] 08/09 19:54 Order name: NT PRO-BNP; Complete Time: 21:06 [facility] 08/09 19:54 Order name: PT-INR; Complete Time: 21:06 [facility] 08/09 19:54 Order name: Troponin HS; Complete Time: 21:06 [facility] 08/09 20:09 Order name: TSH; Complete Time: 23:03 [facility] 08/09 20:09 Order name: T4 Free; Complete Time: 23:03 [facility] 08/09 19:54 Order name: XRAY Chest (1 view); Complete Time: 21:30 [facility] 08/09 19:54 Order name: Cardiac monitoring; Complete Time: 20:14 [facility] 08/09 19:54 Order name: EKG - Nurse/Tech; Complete Time: 20:14 [facility] 08/09 19:54 Order name: IV Saline Lock; Complete Time: 20:20 [facility] 08/09 19:54 Order name: Labs collected and sent; Complete Time: 20:20 [facility] 08/09 19:54 Order name: O2 Per Protocol; Complete Time: 20:14 [facility] 08/09 19:54 Order name: O2 Sat Monitoring; Complete Time: 20:14 sp4 EC/19 20:05 Rate is 89 beats/min. Rhythm is regular, Normal Sinus Rhythm. QRS Glennie is Normal. NC sp4 interval is normal. QRS interval is normal. QT interval is normal. No Q waves. T waves are Normal. No ST changes noted. Clinical impression: No evidence of ischemia. Interpreted by me. Reviewed by me. Administered Medications: 20:33 Drug: Diazepam PO 10 mg PO once Route: PO; tb4 22:45 Follow up: Response: No adverse reaction; Anxiety decreased; RASS: Alert and Calm (0) tb4 Disposition: 08/10 19:15 Chart complete. sp4 Disposition Summary: 08/09/25 23:13 Discharge Ordered Notes: Location: Home sp4 Problem: new sp4 Symptoms: have improved sp4 Condition: Stable sp4 Diagnosis - Chest pain, unspecified sp4 - Acute dyspnea, palpitations sp4 Followup: sp4 - With: Eddie Franco MD - When: 7 - 10 days - Reason: Recheck today's complaints Discharge Instructions: - Discharge Summary Sheet sp4 - Nonspecific Chest Pain, Adult, [id number] sp4 Forms: - Work release form sb4 - Patient Portal Instructions sp4 Prescriptions: - Valium 5 mg Oral tablet - take 1 tablet ORAL route once daily As needed PRN anxiety; 20 tablet; Refills: sp4 0, Product Selection Permitted Signatures: Dispatcher [employer] Jose M Fu MD MD sp4 Graciela Blanco, RN RN me1 Tosha Mace RN RN tb4 Corrections: (The following items were deleted from the chart) 08/09 19:54 19:54 BASIC METABOLIC PANEL+C.LAB.BRZ ordered. EDMS EDMS 19:54 19:54 CBC+H.LAB.BRZ ordered. EDMS EDMS 19:54 19:54 HEPATIC FUNCTION+C.LAB.BRZ ordered. EDMS EDMS 19:54 19:54 MAGNESIUM+C.LAB.BRZ ordered. EDMS EDMS 19:54 19:54 PROBNP+C.LAB.BRZ ordered. EDMS EDMS 19:54 19:54 PROTIME (+INR)+COAG.LAB.BRZ ordered. EDMS EDMS 19:54 19:54 Troponin High Sensitivity+C.LAB.BRZ ordered. EDMS EDMS 19:55 19:55 Chest Single View+RAD.RAD.BRZ ordered. EDMS EDMS
--- NOTE | 2025-08-09 23:14 | ER ---
Nurse's Notes [facility] Name: Tamar Pinto Age: 44 yrs Sex: Female : 1980 Arrival Date: 08/09/2025 Time: 19:51 Bed 20 Private MD: Diagnosis: Chest pain, unspecified;Acute dyspnea, palpitations Presentation: 08/09 19:56 Chief complaint: Patient states: for about 4 days patient feels like she cant take a me1 deep breath. Also reports short intervals of intermittent chest pain that is mid sternal, at worst pain level is 5/10. Coronavirus screen: Vaccine status: Patient reports receiving the 2nd dose of the covid vaccine. Ebola Screen: No symptoms or risks identified at this time. Initial Sepsis Screen: Does the patient meet any 2 criteria? No. Patient's initial sepsis screen is negative. Does the patient have a suspected source of infection? No. Patient's initial sepsis screen is negative. Risk Assessment: Do you want to hurt yourself or someone else? Patient reports no desire to harm self or others. Onset of symptoms is unknown. 19:56 Method Of Arrival: Ambulatory [facility] 19:56 Acuity: JACIEL 3 me1 20:10 Chief complaint:. me1 Triage Assessment: 20:21 General: Appears in no apparent distress. Respiratory: Onset: The symptoms/episode tb4 began/occurred Patient states pain comes and goes some days, the patient has mild shortness of breath. Respiratory: Reports shortness of breath at rest. GI: No signs and/or symptoms were reported involving the gastrointestinal system. 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 - Infectious Disease History:: Denies. - Social history:: Smoking status: Patient denies any tobacco usage or history of. - Family history:: not pertinent. Screenin:16 [facility] ED Fall Risk Assessment (Adult) History of falling in the last 3 months, tb4 including since admission No falls in past 3 months (0 pts) Confusion or Disorientation No (0 pts) Intoxicated or Sedated No (0 pts) Impaired Gait No (0 pts) Mobility Assist Device Used No (0 pt) Altered Elimination No (0 pt) Score/Fall Risk Level 0 - 2 = Low Risk Maintained a safe environment. Abuse screen: Denies threats or abuse. Denies injuries from another. Nutritional screening: No deficits noted. Tuberculosis screening: No symptoms or risk factors identified. Assessment: 20:19 Reassessment: Patient denies pain. General: Appears in no apparent distress. tb4 comfortable, Behavior is calm, cooperative. Pain: Denies pain. Neuro: Level of Consciousness is awake, alert, obeys commands, Oriented to person, place, time, situation, Moves all extremities. Full function Gait is steady, Speech is normal. Cardiovascular: Patient's skin is warm and dry. Rhythm is regular. Respiratory: Reports shortness of breath at rest Airway is patent Respiratory effort is even, unlabored, Respiratory pattern is regular, symmetrical, Breath sounds are clear bilaterally. GI: No signs and/or symptoms were reported involving the gastrointestinal system. : No signs and/or symptoms were reported regarding the genitourinary system. EENT: No signs and/or symptoms were reported regarding the EENT system. Derm: No signs and/or symptoms reported regarding the dermatologic system. Skin is intact, is healthy with good turgor, Skin is dry, Skin is normal, Skin temperature is warm. Musculoskeletal: Circulation, motion, and sensation intact. Range of motion: intact in all extremities. 08/10 00:16 Reassessment: Patient denies pain at this time. Patient states feeling better. tb4 Vital Signs: 08/09 19:56 BP 149 / 92; Pulse 83; Resp 18; Temp 98.4; Pulse Ox 100% ; Weight 90.72 kg; Height 5 me1 ft. 8 in. ; Pain 0/10; 20:16 BP 115 / 82; Pulse 79; Resp 17; Pulse Ox 100% on R/A; Weight 96.62 kg (R); Height 5 ft. tb4 8 in. ; Pain 0/10; 21:00 BP 142 / 83; Pulse 63; Resp 19; Pulse Ox 99% on R/A; tb4 22:00 BP 140 / 77; Pulse 70; Resp 20; Pulse Ox 99% on R/A; tb4 23:00 BP 143 / 75; Pulse 88; Resp 20; Pulse Ox 99% on R/A; tb4 20:16 Body Mass Index 32.39 (96.62 kg, 172.72 cm) tb4 19:56 Pain Scale: Adult me1 20:16 Pain Scale: Adult tb4 Wing Coma Score: 20:34 Eye Response: spontaneous(4). Motor Response: obeys commands(6). Verbal Response: sp4 oriented(5). Total: 15. ED Course: 19:53 Patient arrived in ED. im 19:54 Jose M Valverde MD is Attending Physician. sp4 20:12 Triage completed. me1 20:12 Arm band placed on Patient placed in an exam room. me1 20:16 Patient has correct armband on for positive identification. Placed in gown. Call light tb4 in reach. Adult w/ patient. Client placed on continuous cardiac and pulse oximetry monitoring. NIBP monitoring applied. laboratory monitor on. Door closed. 20:16 No provider procedures requiring assistance completed. Initial lab(s) drawn, by lab tb4 tech, sent to lab. EKG done, by ED staff, reviewed by Jose M Valverde MD. 20:20 Initial lab(s) drawn, by quality control lab tech, sent to lab. Inserted saline lock: 20 gauge in left ts3 antecubital area, using aseptic technique. Blood collected. Flushed with 10 mL NS. 20:45 XRAY Chest (1 view) In Process Unspecified. EDMS 23:12 Eddie Franco MD is Referral Physician. sp4 08/10 00:16 IV discontinued, intact, bleeding controlled, No redness/swelling at site. Pressure tb4 dressing applied. 00:17 Provided Education on: Take medication as prescribed. tb4 Administered Medications: 08/09 20:33 Drug: Diazepam PO 10 mg PO once Route: PO; tb4 22:45 Follow up: Response: No adverse reaction; Anxiety decreased; RASS: Alert and Calm (0) tb4 Medication: 20:16 VIS not applicable for this client. tb4 Outcome: 23:13 Discharge ordered by sp4 08/10 00:16 Discharged to home ambulatory, with family, tb4 Condition: stable Discharge instructions given to patient, family, Instructed on discharge instructions, follow up and referral plans. Demonstrated understanding of instructions, follow-up care, medications, Prescriptions given X 1, 00:17 Patient left the ED. tb4 Signatures: Dispatcher [employer] Jose M Fu MD MD sp4 Sujey Bhat Michelle RN RN me1 Tosha Mace RN RN tb4 Sarai Johnson ts3 Corrections: (The following items were deleted from the chart) 08/09 22:52 21:00 BP 103 / 57; Pulse 112bpm; Resp 25bpm; Pulse Ox 96% BiPAP; tb4 tb4 22:52 22:00 BP 117 / 60; Pulse 79bpm; Resp 24bpm; Pulse Ox 99% BiPAP; tb4 tb4
[2025-08-10 06:12] VITALS: TEMP 98.4
[2025-08-10 06:15] VITALS: O2SAT 99
[2025-08-10 06:17] VITALS: BP 143/75
== END 2025-08-10 00:17 | disposition home or self-care (01) ==
LOC: ER 19:51
DX: R07.9 Chest pain, unspecified (principal); R06.00 Dyspnea, unspecified; R00.2 Palpitations; I10 Essential (primary) hypertension; E11.9 Type 2 diabetes mellitus without complications
CPT/HCPCS: 36415; 71045; 80048; 80076; 83735; 83880; 84439; 84443; 84484; 85025; 85610; 93005; 99285